=== PATIENT | female | born 2000 | race Caucasian/White ===

== ENCOUNTER → 2020-05-24 11:23 | Outpatient (CLI) | payer BC, SELFPAY ==
--- NOTE | ~2020-05-24 | US_ITS ---
EXAMINATION: US transvaginal DATE: 05/24/2020 11:50 INDICATION: Irregular menstruation Comparison:No prior studies for comparison. TECHNIQUE: Multiple endovaginal sonographic images of the pelvis performed. FINDINGS: The uterus measures 6.6 x 2.8 x 3.7 cm. The endometrial complex measures 9 mm. The right ovary measures 3.2 x 2.1 x 2.6 cm and the left ovary measures 2.4 x 1.8 x 2.5 cm. There ar e small follicles in each ovary. There is no free fluid in the pelvis. There are no abnormal masses seen on either side. IMPRESSION: 1. Unremarkable pelvic ultrasound. Reviewed, dictated and finalized at location A. NG COILER HAND
== END ==
PROVIDERS: Visit Provider Nurse Practitioner
DX: N92.6 Irregular menstruation, unspecified (principal)
CPT/HCPCS: 76830

== ENCOUNTER 2023-11-13 10:24 | Outpatient (CLI) | payer BC, SELFPAY ==
--- NOTE | ~2023-11-13 | US_ITS ---
EXAMINATION: US OB transvaginal DATE: 11/13/2023 11:00 INDICATION: Confirmation of viability. TECHNIQUE: Real-time transvaginal pelvic ultrasound was performed. COMPARISON: None. FINDINGS: The uterus measures 9.7 x 5.2 x 6.2 cm. There is an intrauterine gestational sac. A yolk sac is ident ified. The crown rump length measures 7 mm, which correlates with an estimated gestational age of 6 weeks and 4 day(s) (+/-) 4 day(s). heart motion is identified measuring 121 beats per min fred (bpm) by M-mode Doppler. The right ovary measures 5.5 x 4.2 x 5.7 cm. There is a 3.8 cm cyst in r ight ovary, likely a follicular cyst. The left ovary is not visualized. There is no free fluid in the pelvis. IMPRESSION: 1. Single living intrauterine gestation with estimated date of delivery of 07/04/2024. Reviewed, dictated and finalized at location E. IMPRESSION: 1. Single living intrauterine gestation with estimated date of delivery of 07/04.
== END 2023-11-13 10:25 ==
PROVIDERS: PCP Advanced Practice Midwife; Visit Provider Advanced Practice Midwife
DX: O36.80X0 Pregnancy with inconclusive fetal viability, not applicable or unspecified (principal); Z3A.00 Weeks of gestation of pregnancy not specified
CPT/HCPCS: 76817

== ENCOUNTER 2024-02-14 10:50 | Outpatient (CLI) | payer BC, SELFPAY ==
--- NOTE | ~2024-02-14 | US_ITS ---
EXAMINATION: US OB /maternal detail DATE: 02/14/2024 11:38 INDICATION: anatomy screen during second trimester TECHNIQUE: Multiple obstetric sonographic images performed. FINDINGS: There is a single living fetus in vertex presentation. The placenta is posterior with caudal margin 4.7 cm from the internal cervical os.. Normal amniotic fluid volume. heart rate of 152 beats p er minute. The following anatomy was identified as normal: Ventricles, choroid plexus, falx and cava septum pellucidum Cerebellum and cisterna magna Nuchal fold Spine The outflow tract views are suboptimal however the anatomy appears normal on the cine grayscale image s. Diaphragm Stomach Kidneys 3 vessel cord and cord insertion Bilateral upper and lower extremities including hands and feet The upper lip was unable be clearly visualized. A fluid-filled bladder was not visualized. The following biometric data were obtained: BPD: 4.6 cm -> 19 weeks 5 days Head circumference: 17.3 cm -> 19 weeks 6 days Abdominal circumference: 15.6 cm -> 20 weeks 5 days Femur length: 3.1 cm -> 19 weeks 5 days These measurements are concordant. Head circumference to abdominal circumference ratio: 1.11 (normal range 1.08-1.25). Estimated weight: 340 g (+/-) 51 g. or 12 oz. (+/-) 2 oz. IMPRESSION: 1. Single living fetus with vertex presentation with heart rate of 152 bpm. 2. Biometric data is concordant with previously estimated gestational age by ultrasound of 19 weeks 6 day(s) with ultrasound estimated date of delivery (SARBJIT) of 07/04/2024. Estimated weight is 67th percentile by Hadlock criteria when 07/04/2024 is used as the SARBJIT. Please correlate with clinical infor mation or earlier ultrasounds for most accurate SARBJIT. 3. Fluid-filled bladder is not visualized. The region of the upper lip was also obscured. The outflow tract views and portions of the brain are suboptimally visualized but appear normal. Otherwise kandace l anatomic survey. Reviewed, dictated and finalized at location A. IMPRESSION: 1. Single living fetus with vertex presentation with heart rate of 152 b pm. 2. Biometric data is concordant with previously estimated gestational age by jason nieves of 19 weeks 6 day(s) with ultrasound estimated date of delivery (SARBJIT) of 07/04/2024. Estimated weight is 67th percentile by Hadlock criteria when 07/04/2024 is used as the SARBJIT. Please correlate with clinical information or ear lier ultrasounds for most accurate SARBJIT. 3. Fluid-filled bladder is not visualized. The region of the upper lip was also obscured. The outflow tract views and portions of the brain are suboptimally v isualized but appear normal. Otherwise normal anatomic survey.
== END 2024-02-14 10:51 ==
LOC: MICIMG 10:51
PROVIDERS: PCP Obstetrics & Gynecology Gynecology; Visit Provider Obstetrics & Gynecology Gynecology
DX: Z36.9 Encounter for antenatal screening, unspecified (principal)
CPT/HCPCS: 76805

== ENCOUNTER 2024-03-11 10:55 | Outpatient (CLI) | payer BC, SELFPAY ==
--- NOTE | ~2024-03-11 | US_ITS ---
EXAMINATION: US OB follow up DATE: 03/11/2024 11:28 INDICATION: Anatomy scan follow-up TECHNIQUE: Real-time ultrasound of the pelvis was performed. The interpreting radiologist was not pre sent for the study. COMPARISON: None. FINDINGS: There is a single living fetus in breech presentation. The placenta is posterior. heart rate i s 153 beats per minute (bpm). The amniotic fluid volume is subjectively normal. The following anatomy was identified as normal: Ventricles, choroid plexus, falx and cava septum pellucidum Cerebellum and cisterna magna Nuchal fold Nose and upper lip Bladder IMPRESSION: 1. Single living fetus in breech presentation with heart rate of 153 bpm. 2. Repeat portions of prior incomplete anatomic survey including the bladder and imaging of the head are normal as detailed above. Reviewed, dictated and finalized at location B. IMPRESSION: 1. Single living fetus in breech presentation with heart rate of 153 bpm. 2. Repeat portions of prior incomplete anatomic survey including the blad lashay and imaging of the head are normal as detailed above.
== END 2024-03-11 10:56 | disposition home or self-care (01) ==
LOC: MICIMG 10:55
PROVIDERS: PCP Obstetrics & Gynecology Gynecology; Visit Provider Obstetrics & Gynecology Gynecology
DX: Z36.2 Encounter for other antenatal screening follow-up (principal); Z3A.00 Weeks of gestation of pregnancy not specified
CPT/HCPCS: 76816

== ENCOUNTER 2024-05-25 15:54 | Outpatient (CLI) | payer BC, SELFPAY ==
--- NOTE | ~2024-05-25 | US_ITS ---
EXAMINATION: US OB follow up DATE: 05/25/2024 16:25 INDICATION: Estimated size less than expected for gestational age during third trimester of pre gnancy. TECHNIQUE: Real-time ultrasound of the pelvis was performed. The interpreting radiologist was not pre sent for the study. COMPARISON: None. FINDINGS: There is a single living fetus in vertex presentation. The placenta is posterior and not low-lying. Cervical length measures approximately 3.7 cm which is normal. heart rate is 143 beats per vu te (bpm). The amniotic fluid index is 15.2 cm, which is normal (5th%-95%: 8.1-24.8 cm at 34 weeks es timated gestational age). The following biometric data were obtained: BPD: 8.5 cm -> 34 weeks 0 days Head circumference: 31.1 cm -> 34 weeks 5 days Abdominal circumference: 30.6 cm -> 34 weeks 4 days Femur length: 6.9 cm -> 35 weeks 2 days These measurements are concordant. Head circumference to abdominal circumference ratio: 1.02 (normal range 0.93-1.11). Estimated weight: 2497 g (+/-) 375 g or 5 lbs. 8 oz. (+/-) 13 oz. IMPRESSION: 1. Single living fetus in vertex presentation with heart rate of 143 bpm. 2. Normal amniotic fluid index of 15.2 cm. 3. Estimated weight is 57th percentile by Hadlock criteria when 07/01/2024 is used as the estimat ed date of delivery (SARBJIT). Please correlate with clinical information or earlier ultrasounds for most accurate SARBJIT. Reviewed, dictated and finalized at location A. ING AND COMPOSITE FABRICATOR IMPRESSION: 1. Single living fetus in vertex presentation with heart rate of 143 bpm. 2. Normal amniotic fluid index of 15.2 cm. 3. Estimated weight is 57th percentile by Hadlock criteria when 07/01/2024 is used as the estimated date of delivery (SARBJIT). Please correlate with clinical information or earlier ultrasounds for most accurate SARBJIT.
== END 2024-05-25 15:55 | disposition home or self-care (01) ==
PROVIDERS: PCP Obstetrics & Gynecology Gynecology; Visit Provider Advanced Practice Midwife
DX: O36.5930 Maternal care for other known or suspected poor fetal growth, third trimester, not applicable or unspecified (principal); Z3A.00 Weeks of gestation of pregnancy not specified
CPT/HCPCS: 76816

== ENCOUNTER 2024-06-04 10:55 | Outpatient (CLI) | payer BC, SELFPAY ==
[2024-06-04] VITALS (7 sets, daily range): BP systolic 115–127; BP diastolic 71–78; PULSE 89–94; BMI 29.7
[2024-06-04 11:55] LABS: Basophils Percent Auto 0.1 % (0.2-1.2); Eosinophils Absolute Auto 0.2 K/mm3 (0-0.3); Eosinophils Percent Auto 2.5 % (0-4.4); Hematocrit 32.4 % (37.0-47.0); Hemoglobin 10.5 g/dL (12.0-15.0); Immature Granulocyte Absolute 0.04 K/mm3 (0.00-0.031); Immature Granulocyte Percent A 0.5 % (0-0.5); Lymphocytes Absolute Auto 1.12 K/mm3 (0.9-3.2); Lymphocytes Percent Auto 14.9 % (18.3-44.2); Mean Corpuscular HGB Conc 32.4 g/dl (32-36); Mean Corpuscular Hemoglobin 27.3 pg (26-34); Mean Corpuscular Volume 84.2 fl (80-100); Mean Platelet Volume 10.1 fl (7.4-10.4); Monocytes Absolute Auto 0.5 K/mm3 (0.1-0.6); Monocytes Percent Auto 6.4 % (2.6-8.5); Neutrophils Absolute Auto 5.7 K/mm3 (1.3-6.7); Neutrophils Percent Auto 75.6 % (45.5-73.1); Platelet Count Result 201 k/mm3 (150-375); Red Blood Count 3.85 M/mm3 (4.2-5.4); Red Cell Distribution Width 14.3 % (11.5-14.5); White Blood Count 7.5 K/mm3 (4.5-10.0)
[2024-06-04 12:01] LABS: Add Urine Microscopic? YES; Appearance Urine Clear (Clear); Bacteria Urine None Seen /hpf; Bilirubin Urine Negative (Negative); Blood Urine Negative (Negative); Color Urine Yellow (Yellow); Glucose Urine UA Negative (Negative); Ketones Urine Trace mg/dL (Negative); Leukocyte Esterase Ur Negative LEU/UL (Negative); Nitrate Urine Negative (Negative); Non Pathogenic Casts 0-2; Protein Urine Trace mg/dL (Negative); RBC Urine 0-2 /hpf (0-2); Specific Grav Ur 1.024 (1.001-1.035); Squamous Epithelial Cell Urine Occasional /hpf (Few); WBC Urine 0-5 /hpf (0-3); pH Urine 6.5 (5.0-9.0)
[2024-06-04 12:09] LABS: Alanine Aminotransferase 10 U/L (6-35); Albumin Level 3.5 g/dL (3.5-5.1); Alkaline Phosphatase 125 U/L (38-126); Anion Gap 5 mmol/L (4-12); Aspartate Amino Transferase 18 U/L (14-36); Bilirubin,Total 0.3 mg/dL (0.2-1.3); Blood Urea Nitrogen 8 mg/dL (7-17); Calcium 8.6 mg/dL (8.4-10.2); Carbon Dioxide 22 mmol/L (22-30); Chloride 109 mmol/L (98-107); Estimated Glomerular Filt Rate > 60; Glucose 122 mg/dL (65-110); Potassium 3.8 mmol/L (3.4-5.0); Sodium 136 mmol/L (137-145); Uric Acid 5.9 mg/dL (2.5-7.5)
[2024-06-04 12:35] LABS: Total Protein Urine Random 14 mg/dL; Ur Ttl Prot Creatinine Ratio 0.06 mg/mg (0-0.20)
--- NOTE | 2024-06-04 12:37 | PC.NURSE ---
Dr. Broussard informed of BP's, lab results, and reactive NST.
== END 2024-06-04 13:03 | disposition home or self-care (01) ==
LOC: ANHOBOP 11:09 → ANHOBPP 11:11
PROVIDERS: Visit Provider Obstetrics & Gynecology Gynecology
DX: O13.9 Gestational [pregnancy-induced] hypertension without significant proteinuria, unspecified trimester (principal); Z3A.00 Weeks of gestation of pregnancy not specified
CPT/HCPCS: 36415; 59025; 80053; 81001; 82570; 84156; 84550; 85025; 99199

== ENCOUNTER 2024-06-08 14:10 | Outpatient (NON) | payer BC, SELFPAY ==
[2024-06-08 15:08] VITALS: BMI 29.7
[2024-06-08 16:45] LABS: Collection Time Urine 24 HOURS
[2024-06-08 16:51] LABS: Total Volume 24 Hour Urine 500 ml
[2024-06-08 16:53] LABS: Patient Weight 212 Lbs; Total Volume 24 Hour Urine 500 ml
[2024-06-08 17:28] LABS: Total Protein Urine 24 Hr 85 mg/24hr (28-141); Total Protein Urine Random 17 mg/dL
[2024-06-08 17:28] LABS: Creatinine Clearance Urine 143.4 ml/min (75-125); Creatinine Urine 308.5 mg/dL
== END 2024-06-08 14:11 | disposition home or self-care (01) ==
LOC: ANHOBOP 14:48
PROVIDERS: Visit Provider Obstetrics & Gynecology Gynecology
DX: Z34.93 Encounter for supervision of normal pregnancy, unspecified, third trimester (principal); Z3A.00 Weeks of gestation of pregnancy not specified
CPT/HCPCS: 81050; 82575; 84156

== ENCOUNTER 2024-06-30 05:01 | Inpatient (IN) | payer BC, SELFPAY ==
[2024-06-30] VITALS (145 sets, daily range): BP systolic 102–150; BP diastolic 51–100; PULSE 75–170; RESP 16; TEMP 36.6–37.2; O2SAT 93–100; BMI 30.4
[2024-06-30 05:58] LABS: Basophils Percent Auto 0.3 % (0.2-1.2); Eosinophils Absolute Auto 0.6 K/mm3 (0-0.3); Eosinophils Percent Auto 5.6 % (0-4.4); Hematocrit 32.5 % (37.0-47.0); Hemoglobin 10.8 g/dL (12.0-15.0); Immature Granulocyte Absolute 0.06 K/mm3 (0.00-0.031); Immature Granulocyte Percent A 0.6 % (0-0.5); Lymphocytes Absolute Auto 1.97 K/mm3 (0.9-3.2); Lymphocytes Percent Auto 18.9 % (18.3-44.2); Mean Corpuscular HGB Conc 33.2 g/dl (32-36); Mean Corpuscular Hemoglobin 27.6 pg (26-34); Mean Corpuscular Volume 82.9 fl (80-100); Monocytes Absolute Auto 0.9 K/mm3 (0.1-0.6); Monocytes Percent Auto 8.3 % (2.6-8.5); Neutrophils Absolute Auto 6.9 K/mm3 (1.3-6.7); Neutrophils Percent Auto 66.3 % (45.5-73.1); Platelet Count Result 183 k/mm3 (150-375); Red Blood Count 3.92 M/mm3 (4.2-5.4); Red Cell Distribution Width 15.2 % (11.5-14.5); White Blood Count 10.5 K/mm3 (4.5-10.0)
--- NOTE | 2024-06-30 06:19 | LDADM ---
This patient, Calvin Ozuna, was admitted to Labor/Delivery/Recovery 105 on 06/30/24 at 05:01. Plans for labor, pain management and were discussed with patient. Patient/family oriented to hospital policies and general routines including ID bracelet, bed and alarms, visiting hours, pain management, procedures, bathroom and other care routines, personal items, smoking policy, room service/diet and guest tray routines, security routines, and visiting hours. Patient/Family are encouraged to report perceived risks to care and to ask questions if they do not understand what they are told or what they should do. See OBIX for further documentation.
[2024-06-30] MEDS: OXYTOCIN 30 UNITS/NS 500 ML 30 UNITS/500 ML BAG 6 UNITS IV CONT (06:33)
[2024-06-30] MEDS: LACTATED RINGERS 1,000 ML 125 ML IV CONT (06:33)
[2024-06-30 06:45] LABS: HIV 1/2 Ab P24 Ag Result Negative (Negative)
[2024-06-30 07:34] LABS: Rapid Plasma Reagin Non-Reactive (NonReactive)
--- NOTE | 2024-06-30 07:47 | WPDOBADMIT ---
Obstetrics - Admit Note Admission Note: record reviewed. No pertinent additions to the history and/or any subsequent changes in the physical findings that are not consistent with the expected course of the were found. Additions to the history and/or subsequent changes in the physical findings follow. None.Here at 39 4/7 for MIL. Cervix /-2 anterior soft. AROM with clear fluid. FHTs Cat. I.
[2024-06-30] MEDS: fentaNYL CITRATE INJ (*CRX) 100 MCG/2 ML VIAL 50 MCG IV PUSH (09:08)
--- NOTE | 2024-06-30 10:12 | WPDANESEPP ---
Anes - Eval Pre Procedure Procedure: Labor epidural Date/Time: 06/30/24 10:12 Surgeon: Bobo Preop Diagnosis: Pain during labor Pre Op Diagnosis: Induction of Labor Patient Data Age: 23 Gender: F Height: 1.8 m Weight: 99.1 kg Last Vital Signs Temp 37.2 C 06/30/24 08:30 Pulse 92 06/30/24 08:30 BP 136/94 H 06/30/24 08:30 Pulse Ox 99 06/30/24 10:12 O2 Del Method Room Air 06/30/24 06:17 Allergies Allergy/AdvReac Type Severity Reaction Status Date / Time No Known Drug Allergies Allergy none Verified 06/30/24 06:23 Home Medications ?Medication ?Instructions ?Recorded ?Confirmed ?Type aspirin 81 mg chewable tablet 81 mg PO DAILY 06/17/24 06/30/24 History (Buster Chewable Low Dose Aspirin) cetirizine 10 mg tablet (24Hour 5 mg PO DAILY PRN allergy symptoms 06/17/24 06/17/24 History Allergy) cholecalciferol (vitamin D3) 125 mcg PO WEEKLY 06/17/24 History mcg (5,000 unit) disintegrating tablet ferrous sulfate 137 mg (45 mg 137 mg PO DAILY 06/17/24 06/30/24 History iron) tablet,extended release (Slow Fe) vit no.95-ferrous 1 tablet PO DAILY 06/17/24 06/30/24 History fumarate 28 mg-folic acid 800 mcg tablet () Laboratory Tests 06/30/24 05:19 WBC 10.5 H K/mm3 (4.5-10.0) RBC 3.92 L M/mm3 (4.2-5.4) Hgb 10.8 L g/dL (12.0-15.0) Hct 32.5 L % (37.0-47.0) MCV 82.9 fl (80-100) MCH 27.6 pg (26-34) MCHC 33.2 g/dl (32-36) RDW 15.2 H % (11.5-14.5) Plt Count 183 k/mm3 (150-375) MPV 10.0 fl (7.4-10.4) Immature Gran % (Auto) 0.6 H % (0-0.5) Neut % (Auto) 66.3 % (45.5-73.1) Lymph % (Auto) 18.9 % (18.3-44.2) Yell % (Auto) 8.3 % (2.6-8.5) Eos % (Auto) 5.6 H % (0-4.4) Baso % (Auto) 0.3 % (0.2-1.2) Lymph # (Auto) 1.97 K/mm3 (0.9-3.2) Yell # (Auto) 0.9 H K/mm3 (0.1-0.6) Eos # (Auto) 0.6 H K/mm3 (0-0.3) Baso # (Auto) 0.0 K/mm3 (0.0-0.1) Abs Immat Gran (auto) 0.06 H K/mm3 (0.00-0.031) Absolute Neuts (auto) 6.9 H K/mm3 (1.3-6.7) Absolute Nucleated RBC 0.000 K/mm3 (0.0-0.012) Nucleated RBC % 0.0 % (0.0-0.2) RPR Non-reactive (NonReactive) HIV 1&2 Ab/P24 Ag 4thGn Negative (Negative) Blood Type AB Positive Antibody Screen Negative Patient hx anesthesia problems: none Family hx anesthesia problems: none Results Review: All pre-operative results and documents have been reviewed as part of the pre-operative evaluation. [facility] Family History Family History Father Diabetes mellitus Hypertension Grandparent Acute myocardial infarction Social History Social History Smoking status: Never smoker Substance use: never Do You Feel Safe in your Home?: Yes Lack of Transportation: No Lack of Food: Never True Current Housing: I Have Housing Concerned About Future Housing: No Difficulty Paying Gas/Electric Bills: No Difficulty Paying for Meds: No Currently Unemployed: No Education: Bachelor's Degree Difficulty w/ Childcare or Family Care: No Exam Day of Procedure 06/30/24 10:12 Patient weight: overweight Heart: regular rate and rhythm Lungs: clear to auscultation and normal air movement Airway: Mallampati scale class II Neurological: alert and oriented
--- NOTE | 2024-06-30 14:20 | P.PCNOB_ITS ---
OB - Vaginal Delivery Note Procedure Delivery date: 06/30/24 Induction method: AROM and Per Pitocin Protocol Delivery monitor: External FHT and External Uterine Route of delivery: Episiotomy description: None Laceration Description: Perineal - 2nd Degree Delivery repair: vicryl (3-0) Specimen: No Quantitative Blood Loss (ml): 100 Anesthesia type: Epidural Disposition: Floor Complications: No immediate complications [place] Baby Date of : 06/30/24 Gestational Age by Date: 39 gender: Female presentation: vertex position: Right Occiput Anterior Placenta delivery description: Spontaneous Cord Vessel Description: 3 Vessels and Nuchal Cord score one minute: 8 score five minutes: 9
[2024-06-30] MEDS: OXYTOCIN 30 UNITS/NS 500 ML 30 UNITS/500 ML BAG 125 UNITS IV CONT (14:38)
--- NOTE | 2024-06-30 17:00 | OBPPTRN ---
Patient transferred to post room #285 via wheelchair. Support person present. Oriented to unit, room, information board, rooming in, admission packet and security measures. Patient verbalizes understanding.
[2024-06-30] MEDS: IBUPROFEN 600 MG TABLET PO (18:59)
[2024-06-30] MEDS: ACETAMINOPHEN 325 MG TABLET 650 MG PO (19:03)
[2024-07-01] MEDS: ACETAMINOPHEN 325 MG TABLET 650 MG PO ×3 (01:59→21:50)
[2024-07-01] MEDS: IBUPROFEN 600 MG TABLET PO ×3 (01:59→19:19)
[2024-07-01 03:55] VITALS: BP 126/82; PULSE 92; RESP 16; TEMP 36.4; O2SAT 98
[2024-07-01 05:20] LABS: Hematocrit 28.5 % (37.0-47.0); Hemoglobin 9.4 g/dL (12.0-15.0)
[2024-07-01 07:45] VITALS: BP 128/76; PULSE 94; RESP 16; TEMP 36.8; O2SAT 100
[2024-07-01] MEDS: POLYSACCHARIDE IRON COMPLEX 150 MG CAPSULE PO ×2 (08:06→17:31)
[2024-07-01] MEDS: MULTIVIT/MIN/PREN/FOL AC/IRON TABLET 1 TAB PO (08:06)
[2024-07-01] MEDS: DOCUSATE SODIUM 100 MG CAPSULE PO ×2 (08:06→17:31)
--- NOTE | 2024-07-01 09:30 | PC.NURSE ---
Introductions were made, then consulted with patient to assess needs related to . Discussed with mother her?plans to feed?her and the?experience so far. She is having pain with latch on and throughout some feedings. She says she can tell if it isn't a deep latch. Encouraged her to call at the next feeding so the latch can be assessed. Baby cluster fed several hours early this morning and is sleepy now. Assured mom that is typical behavior. Resources provided for inpatient and outpatient services with the feeding sheet, mom/baby guide, admission packet and name/number written on the communication board. Mother voiced understanding of information and will call for assistance with the next feeding. Reported to the Primary RN.
--- NOTE | 2024-07-01 10:58 | P.PNOB_ITS ---
OB - PN: Subj Subjective Date/time seen: 07/01/24 10:58 Patient comments: no complaints and pain well controlled baby status: doing well OB - PN: Obj Data Labs 07/01/24 03:52 Labs: Laboratory Results - last 24 hr 07/01/24 03:52 Hgb 9.4 L Hct 28.5 L OB - PN A/P Plan day: 1 Plan: routine care, discharge home (if ok with peds), follow up 6 weeks and other (uncertain BC plans) Time Spent With Patient Time: Total time spent is greater than 50% in coordination of care (as documented) at patient's floor/unit and/or counseling patient: Exam 2 : Bimanual exam- vagina & uterus: other (Uterus firm, nt @U)
--- NOTE | 2024-07-01 10:59 | PM.OBDSVD ---
DS: Admitting Diagnosis Discharge Date 07/01/24 Admitting Diagnosis [address] [facility] DS: Discharge Diagnosis Discharge Diagnosis (1) (normal spontaneous vaginal delivery): Code(s): O80 - Encounter for full-term uncomplicated delivery Status: Acute OB - DS: Summary OB Procedures : Ultrasound OB Procedures Intrapartum: Spontaneous Vag Delivery OB Procedures: : None Peripartum Data Infant Delivery Method: Natural Vaginal Laceration Description: Perineal - 2nd Degree Episiotomy description: None complications: none Status at Discharge Functional status at discharge: independent ambulation Overall status at discharge: patient is progressing back to baseline Time Spent with Patient Time attestation: Total time spent providing and/or coordinating discharge services: DS: Data Data Completed and Pending Labs on day of discharge: Labs from last 24 hours 07/01/24 03:52 Hgb 9.4 L Hct 28.5 L Discharge Plan Discharge Attending physician on discharge: Nicky Broussard Discharging Clinician: Nicky Broussard Anticipated Discharge Date/Time: 07/01/24 16:00 Patient Disposition: Home, Self-Care Activity: may shower and pelvic rest Diet: regular Patient Instructions: Antibiotic Form Patient Language: Mohawk Stand Alone Forms: General Discharge Information Follow-up/Referrals: Nicky Broussard MD [Physician] - 6 Weeks Discharge Medications: Continued cetirizine [24Hour Allergy] 10 mg tablet 5 mg PO DAILY PRN (Reason: allergy symptoms) Slow Fe 137 mg (45 mg iron) tablet extended release 137 mg PO DAILY cholecalciferol (vitamin D3) 125 mcg (5,000 unit) tablet,disintegrating PO WEEKLY Discontinued aspirin [Buster Chewable Aspirin] 81 mg tablet,chewable 81 mg PO DAILY No Action PNV cmb#95-ferrous fumarate-FA [] 28 mg iron- 800 mcg tablet 1 tablet PO DAILY Date of admission: 06/30/24 05:01 Primary Care Provider: UNKNOWN,DOCTOR Admitting Provider: Nicky Broussard Attending physician on admission: Nicky Broussard Condition: Stable
--- NOTE | 2024-07-01 11:05 | PC.NURSE ---
Mom called out for a latch check. Observed mother latching infant to the [right] breast in [cradle] position. It took several attempts because baby is sleepy. [was] able to maintain an appropriate latch. Mother [complains of] nipple soreness. but declines pain. She will call out if she has pinching or pain with latch. Baby has an optimal latch with a wide mouth, bottom lip flanged out, and chin engaged with the breast. Encouraged mother to keep awake and nursing. Mother taught to listen for swallowing during feedings, swallows were heard. Reviewed using the blue feeding sheet to record time and duration of feeding. Mother voiced understanding of the education shared, to call for assistance if the does not latch or if there is discomfort with . name/number on communication board. Reported to the Primary RN.
[2024-07-01 12:10] VITALS: BP 131/77; PULSE 84; RESP 16; TEMP 36.4; O2SAT 99
--- NOTE | 2024-07-01 14:39 | WPDANLDPN2 ---
Anes-Prog Note L&D Date/Time: 07/01/24 14:39 Comfortable throughout: labor Neuraxial method: epidural Epidural/Spinal procedure site: clean & non-tender Neuro status: Neuro function grossly intact. Cardiovascular status: normal Respiratory status: normal Airway patency: baseline Mental status: baseline Post-Op hydration status: normal Vital Signs: Last Vital Signs Temp 97.5 F L 07/01/24 12:10 Pulse 84 07/01/24 12:10 Resp 16 07/01/24 12:10 BP 131/77 07/01/24 12:10 Pulse Ox 99 07/01/24 12:10 O2 Del Method Room Air 06/30/24 06:17 Pain score (VAS): 0 Post-procedural complaints: none Patient feedback: Patient satisfied with anesthetic care.
--- NOTE | 2024-07-01 19:58 | PC.NURSE ---
Discussed feeding with Pt and concern that infant only had 1 wet diaper in 12 hours. Pt stated she worked with today and has some soreness at the breast but that infant has adequate latch. Pt stated had sleepy period in the am but fed frequently afterwards. Encouraged pt to continue feeding every 2-3 hours/ on demand and to call prior to next feeding so this RN can observe latch and/or if she has any questions or concerns.
[2024-07-02 00:30] VITALS: BP 128/82; PULSE 86; RESP 18; TEMP 36.7; O2SAT 99
[2024-07-02] MEDS: IBUPROFEN 600 MG TABLET PO (03:38)
--- NOTE | 2024-07-02 07:37 | P.PNOB_ITS ---
OB - PN: Subj Subjective Date/time seen: 07/02/24 07:37 Interval history: peds wanted to stay so dc cancelled yesterday Patient comments: no complaints and pain well controlled baby status: doing well OB - PN: Obj Data Labs 07/01/24 03:52 OB - PN A/P Plan day: 2 Plan: routine care and discharge home Time Spent With Patient Time: Total time spent is greater than 50% in coordination of care (as documented) at patient's floor/unit and/or counseling patient: Exam 2 : Bimanual exam- vagina & uterus: other (Uterus firm, nt @U)
[2024-07-02 07:45] VITALS: BP 121/64; PULSE 72; RESP 16; TEMP 36.6; O2SAT 100
[2024-07-02 08:00] VITALS: PULSE 72; RESP 16; O2SAT 100
--- NOTE | 2024-07-02 09:18 | PC.NURSE ---
Introductions were made, then consulted with patient to assess needs related to . Mother led the conversation with her?plans to feed?her and the?experience so far. Mother plans on exclusively and baby had cluster fed through the night, mother is able to hand express many large drops of colostrum before latching baby. Mother reports that baby has been very gassy and baby's last stool was yesterday @ 0720, but has had 4-5 stools since and urine output is adequate. Mother is feeding appropriately for growth of and understands stimulating infant to eat if needed. Infant has had appropriate feedings in the last 24 hours meets the outcomes for weight, blood sugar and jaundice at this time. Reinforced understanding of milk production, transition of milk, signs of adequate intake, transition of stool, prevention/relief of engorgement, plugged ducts, mastitis, responsive watching for feeding cues, the different methods of stimulating infant to breastfeed 1-3 hours after the start of the last feeding, community resources, and when to call a provider using the resource of the feeding sheet along with the mom and baby guide. Encouraged understanding of the benefits of skin to skin (demonstrating unwrapping and placing upright on her chest), stimulating with massage touch, changing positions to encourage wakefulness, how to watch for early feeding cues, responsive feeding, feeding on demand (aiming for 8-12 times in 24 hours, about every 2-3 hours), milk production, building/maintaining a milk supply, duration of feeding, signs of adequate intake/output and how to record on the feeding sheet. Mother works very well with her and is able to position baby well and get an optimal latch. latched optimally to the [left] breast in [cradle] position. Education given to the mother of how to visualize the suckling (with good rocking jaw motion), swallows (dropping of the lower jaw) and how to listen for drinking at the breast (the ka sound), swallows heard by RN. Infant was [able] to maintain latch without pain to mother protecting the nipple with optimal positioning and latching. Reviewed comfort measures of healing with a warm, wet washcloth to rinse breast, then leave open to air-dry, good handwashing when or touching the breast/nipples to prevent infection. Mother voiced understanding of skin to skin, stimulating with massage touch, responsive feedings, hand expressed colostrum, talking to to encourage if it has been 2 -2.5 hours since the start of the last , to call if does not latch, or if there is discomfort with . Resources used for education were facilitated with the [visual educational handouts/ tool/mom and baby guide], Inpatient/outpatient resources provided with business card, feeding sheet, name written on the communication board, and the mom/baby guide. Parents voiced understanding of information, demonstrated learning and will call if there is a request for assistance. Reported to the Primary RN.
[2024-07-02] MEDS: POLYSACCHARIDE IRON COMPLEX 150 MG CAPSULE PO (09:48)
[2024-07-02] MEDS: ACETAMINOPHEN 325 MG TABLET 650 MG PO (09:48)
[2024-07-02] MEDS: DOCUSATE SODIUM 100 MG CAPSULE PO (09:48)
[2024-07-02] MEDS: MULTIVIT/MIN/PREN/FOL AC/IRON TABLET 1 TAB PO (09:48)
--- NOTE | 2024-07-02 15:15 | PC.NURSE ---
Patient viewed the discharge video Mother & Baby Care, The First Two Weeks . Patient was given the opportunity and encouraged to ask questions. Patient verbalized understanding of information shared and has been given the mother/baby guide for home reference.
[2024-07-03 08:39] VITALS: BP 134/81; PULSE 82; RESP 18; TEMP 36.6; O2SAT 100
--- OUTSIDE RECORDS SUMMARY | 2024-07-07 03:32 | XMS_ITS | Encounter Summary ---
Author Organization [facility] Address [address] [place] [address] Phone Care Team Providers Care Unarmed Security Officer Name Role Phone Vivien Cross APRN, CNP Primary Care P rovider Encounter Details Date Type Department Care Team (Late st Contact Info) Description 06/12/2024 Telephone [facility] - Primary Care - [place] [address] [place] [address] Vivien Cross APRN BARGE MASTER [address] [place] [address] Social History Tobacco Use Types Packs/Day Years Used Date Smoking Tobacco: Never Smokeless Tobacco: Never Alcohol Use Standard Drinks/Week Comments Never 0 (1 standard drink = 0.6 oz pur e alcohol) AUDIT-C Answer Date Recorded Frequency of Alcohol Consumption Never 04/24/2019 Average Number of Drinks Not on file 019 Frequency of Binge Drinking Not on file 04/01 PHQ-2 Answer Date Recorded Total Score - Questions 1-9 0 06/01 Education Answer Date Recorded What is the highest level of school you have completed or the highest degree you have received? Associate degree: occupational, technical, or vocational program 06/20/2021 Sexually Active Control Partners Comments Never Comments No Sex and Gender Information Value Date Recorded Sex Assigned at Not on file Legal Sex Female 9:24 PM CDT Gender Identity Not on file Sexual Orientation Not on file documented as of this encounter Miscellaneous Notes * Telephone Encounter - Vivien Cross APRN, CNP - 06/12/2024 4:19 PM CST Clobetasol to pharm ATRICS PHYSICIAN documented in this encounter Plan of Treatment Not on file documented as of this encounter Visit Diagnoses Diagnosis Dyshidrotic eczema- Primary Dyshidrosis documented in this encounter Care Teams Unarmed Security Officer Relationship Specialty Start Date End Date Vivien Cross APRN, CNP [address] [place] [address] PCP - General Advanced Practice Nurse 06/21/21 documented as of this encounter
--- OUTSIDE RECORDS SUMMARY | 2024-07-07 03:32 | XMS_ITS | Encounter Summary ---
Author Organization [facility] Address [address] [place] [address] Phone Care Team Providers Care Senior Project Manager Engineering Name Role Phone Vivien Cross APRN, MECHELLE Primary Care P roanselmoder Encounter Details Date Type Department Care Team (Late st Contact Info) Description 05/27/2023 [facility] [address] [place] [address] Lexie Pearl APRN, WAIVER ANALYST [address] [place] [address] Encounter for pre-employment examination Social History Tobacco Use Types Packs/Day Years [...] on file documented as of this encounter Plan of Treatment Not on file documented as of this encounter Procedures Procedure Name Priority Date/Time Associated Diagnosis Comments QUANTIFERON-TB GOLD PLUS Routine 05/27/2023 2:00 PM HEALTH INFORMATION MANAGER Encounter for pre-employment examination MMRV PANEL Routine 05/27/2023 2:00 PM HEALTH INFORMATION MANAGER Encounter for pre-employment examination MUMPS IGG Routine 05/27/2023 2:00 PM HEALTH INFORMATION MANAGER Encounter for pre-employment examination HERPES ZOSTER (VARICELLA) IGG Routine 05/27/2023 2:00 PM HEALTH INFORMATION MANAGER Encounter for pre-employment examination RUBEOLA (MEASLES) IGG Routine 05/27/2023 2:00 PM HEALTH INFORMATION MANAGER Encounter for pre-employment examination RUBELLA IMMUNITY IGG Routine 05/27/2023 2:00 PM HEALTH INFORMATION MANAGER Encounter for pre-employment examination HEPATITIS B SURFACE ANTIBODY (HBSAB) Routine 05/27/2023 2:00 PM HEALTH INFORMATION MANAGER Encounter for pre-employment examination documented in this encounter Results * HERPES ZOSTER (VARICELLA) IGG (05/27/2023 2:00 PM HEALTH INFORMATION MANAGER) VARICELLA ZOSTER IGG 2.3 >=1.1 AI 05/27/2023 10:59 PM HEALTH INFORMATION MANAGER [facility] Blood Venipuncture / Unknown 05/27/2023 2:00 PM HEALTH INFORMATION MANAGER 05/27/2023 3:29 PM HEALTH INFORMATION MANAGER Narrative [facility] - 05/27/2023 10:59 PM HEALTH INFORMATION MANAGER <= 0.8 Negative. ??No detectable VZV IgG antibody. 0.9 - 1.0 Equivocal >=1.1 Positive Antibody testing was performed by multiplex flow immunoassay on the [employer] platform. us Lexie L Behrends BULB SORTER, WAIVER ANALYST IMMUNOLOGY ORDERABL ES Final Result [facility] [address] [place] [address], [place] * RUBEOLA (MEASLES) IGG (05/27/2023 2:00 PM HEALTH INFORMATION MANAGER) MEASLES AB IGG 3.5 >=1.1 AI 05/27/2023 10:59 PM HEALTH INFORMATION MANAGER [facility] Blood Venipuncture / Unknown 05/27/2023 2:00 PM HEALTH INFORMATION MANAGER 05/27/2023 3:29 PM HEALTH INFORMATION MANAGER Narrative [facility] - 05/27/2023 10:59 PM HEALTH INFORMATION MANAGER <= 0.8 Negative. ??No detectable Measles IgG antibody. 0.9 - 1.0 Equivocal >=1.1 Positive Antibody testing was performed by multiplex flow immunoassay on the [employer] platform. Lexie L Behrends BULB SORTER, WAIVER ANALYST IMMUNOLOGY ORDERABL ES Final Result [facility] [address] [place] [address], [place] * RUBELLA IMMUNITY IGG (05/27/2023 2:00 PM HEALTH INFORMATION MANAGER) RUBELLA IMMUNITY Immune Immune, Invalid 05/27/2023 10:59 PM HEALTH INFORMATION MANAGER [facility] Blood Venipuncture / Unknown 05/27/2023 2:00 PM HEALTH INFORMATION MANAGER 05/27/2023 3:29 PM HEALTH INFORMATION MANAGER Narrative [facility] - 05/27/2023 10:59 PM HEALTH INFORMATION MANAGER Antibody testing was performed by multiplex flow immunoassay on the [employer] platform. Lexie L Behrends BULB SORTER, WAIVER ANALYST CHEMISTRY ORDERABLE S Final Result [facility] [address] [place] [address], [place] * MUMPS IGG (05/27/2023 2:00 PM HEALTH INFORMATION MANAGER) Mumps Ab IgG 2.9 >=1.1 AI 05/27/2023 10:59 PM HEALTH INFORMATION MANAGER [facility] Blood Venipuncture / Unknown 05/27/2023 2:00 PM HEALTH INFORMATION MANAGER 05/27/2023 3:29 PM HEALTH INFORMATION MANAGER Narrative [facility] - 05/27/2023 10:59 PM HEALTH INFORMATION MANAGER <= 0.8 Negative. ??No detectable Mumps IgG antibody. 0.9 - 1.0 Equivocal >=1.1 Positive Antibody testing was performed by multiplex flow immunoassay on the [employer] platform. us Lexie Pearl BULB SORTER, WAIVER ANALYST IMMUNOLOGY ORDERABL ES Final Result [facility] [address] [facility] [place] [address], [place] * QUANTIFERON-TB GOLD PLUS (05/27/2023 2:00 PM HEALTH INFORMATION MANAGER) NIL CONTROL 0.06 <8.01 IU/mL 05/29/2023 11:00 AM HEALTH INFORMATION MANAGER [facility] TB ANTIGEN 1 0.00 <0.35 IU/mL 05/29/2023 11:00 AM HEALTH INFORMATION MANAGER [facility] TB ANTIGEN 2 0.01 <0.35 IU/mL 05/29/2023 11:00 AM HEALTH INFORMATION MANAGER [facility] MITOGEN CONTROL 9.94 >0.49 IU/mL 05/29/20 11:00 AM HEALTH INFORMATION MANAGER [facility] INTEPRETATION TB NEGATIVE NEGATIVE, NEGATIVE (TB antigen response less than 25% of internal negative control value) 05/29/2023 11:00 AM [facility] Comment:No immune response t o Mycobacterium tuberculosis antigens was noted. M. tuberculosis infection unlikely. Blood Venipuncture / Unknown 05/27/2023 2:00 PM HEALTH INFORMATION MANAGER 05/27/2023 3:29 PM HEALTH INFORMATION MANAGER Narrative [facility] - 05/29/2023 11:00 AM HEALTH INFORMATION MANAGER A POSITIVE QUANTIFERON-TB GOLD PLUS RESULT SHOULD NOT BE THE SOLE OR DEFINITIVE BASIS FOR DETERMINING INFECTION WITH M.TUBERCULOSIS. Diagnosing or excluding tuberculosis disease, and assessing the probability of LTBI, requires a combination of epidemiological, historical, medical and diagnostic findings (e.g., acid fast bacilli (AFB) smear and culture, chest xray) that should be taken into account when interpreting QFT-Plus results. Furthermore, the magnitude of the measured gamma interferon level cannot be correlated to stage or degree of infection, level of immune responsiveness, or likelihood for progression to active disease. The Nil control adjusts for background (e.g., elevated levels of circulating gamma interferon or presence of heterophile antibodies). The Mitogen control serves as an internal positive control and verifies each specimen tested can produce a gamma interferon response. Low mitogen may occur with insufficient lymphocytes, reduced lymphocyte activity due to improper specimen handling, filling/mixing of the mitogen tube, or inability of the patient's lymphocytes to generate gamma interferon. Infection with other Mycobacteria, including M. kansasii, M. szulgai, and M. marinum, may cause false positive results. A negative QuantiFERON-TB Gold Plus result does not preclude the possibility of M. tuberculosis infection or tuberculosis disease: false negative results can be due to incorrect blood sample collection/ improper handling of the specimen, stage of infection (e.g., specimen obtained prior to the development of cellular immune response), co-morbid conditions which affect immune function, or other individual immunological factors. The minimum number of lymphocytes required for a reliable test has not been established and may also be variable. Diagnostic testing for Mycobacterium tuberculosis using Interferon Gamma Release Assays should follow applicable published guidelines, including when testing in populations such as children, women, and HIV-infected or otherwise immunocompromised individuals. https://www.cdc.gov/tb/publications/guidelines/testing.htm us Lexie Pearl BULB SORTER, WAIVER ANALYST IMMUNOLOGY ORDERABL ES Final Result [facility] [address] [place] [address], * HEPATITIS B SURFACE ANTIBODY (HBSAB) (05/27/2023 2:00 PM HEALTH INFORMATION MANAGER) HEPATITIS B SURFACE ANTIBODY <8.00 mIU/mL [facility] ARCH [id number] 05/27/2023 10:15 PM HEALTH INFORMATION MANAGER [facility] Comment:Individual is consid ered not immune to HBV infection. Blood Venipuncture / Unknown 05/27/2023 2:00 PM HEALTH INFORMATION MANAGER 05/27/2023 3:29 PM HEALTH INFORMATION MANAGER us Lexie Pearl APRN, CNP CHEMISTRY ORDERABLE S Final Result [facility] [address] [place] [address], documented in this encounter Visit Diagnoses Diagnosis Encounter for pre-employment examination Health examination of defined subpopulation documented in this encounter Care Teams Senior Project Manager Engineering Relationship Specialty Start Date End Date Vivien Cross APRN, CNP [address] [place] [address] PCP - General Advanced Practice Nurse 06/21/21 documented as of this encounter
--- OUTSIDE RECORDS SUMMARY | 2024-07-07 03:32 | XMS_ITS | Encounter Summary ---
Author Organization [facility] Address [address] [place] [address] Phone Care Team Providers Care Practice Professional Name Role Phone Provider, None Primary Care Provider Unavailabl e Reason for Visit * Reason Comments Vomiting Diarrhea Encounter Details Date Type Department Care Team (Latest Contact Info) Description 03/24/2021 9:30 AM CDT Clinical Support [facility] [address] [place] [address] Nurse, [facility] [place] Diarrhea, unspecified type (Primary Dx) Discharge Disposition: Discharged to home or Selfcare Social History Tobacco Use Types Packs/Day Years Used Date Smoking Tobacco: Never Smokeless Tobacco: Never Alcohol Use Standard Drinks/Week Comments Never 0 (1 standard drink = 0.6 oz pur e alcohol) AUDIT-C Answer Date Recorded Frequency of Alcohol Consumption Never 04/24/2019 Average Number of Drinks Not on file 019 Frequency of Binge Drinking Not on file 04/01 Sexually Active Control Partners Comments Never Comments No Sex and Gender Information Value Date Recorded Sex Assigned at Not on file Legal Sex Female 9:24 PM CDT Gender Identity Not on file Sexual Orientation Not on file COVID-19 Exposure Response Date Recorded In the last month, have you been in contact with someone who was confirmed or suspected to have Coronavirus / COVID-19? No / Unsure 03/24/2021 9:27 AM CDT documented as of this encounter Progress Notes * Ti Armendariz RN - 03/24/2021 9:30 AM CDT Patient stated that she had symptoms since yesterday, patient made aware of negative result documented in this encounter Plan of Treatment Not on file documented as of this encounter Procedures Procedure Name Priority Date/Time Associated Diagnosis Comments POCT SARS ANTIGEN SHERRY Routine 03/24/2021 9:59 AM CDT Diarrhea, unspecified type documented in this encounter Results * POCT SARS ANTIGEN SHERRY (03/24/2021 9:59 AM CDT) POC SARS ANTIGEN SHERRY Negative Negative POC SARS ANTIGEN SHERRY CONTROL Hose Sprayer Pass Swab NASAL STRUCTURE / Unknown 03/24/2021 9:59 AM CDT Lexie Pearl MERCHANDISING TEAM LEAD, ELECTRONIC INDUSTRIAL CONTROLS MECHANIC POINT OF CARE TESTI NG (MANUAL) Final Result documented in this encounter Visit Diagnoses Diagnosis Diarrhea, unspecified type- Primary documented in this encounter Care Teams Practice Professional Relationship Specialty Start Date End Date Provider, None [place] PCP - General 04/24/19 06/20/21 documented as of this encounter
--- OUTSIDE RECORDS SUMMARY | 2024-07-07 03:32 | XMS_ITS | Encounter Summary ---
Author Organization [facility] Address [address] [place] [address] Phone Care Team Providers Care Flagsetter Name Role Phone Vivien Cross APRN, CNP Primary Care P chiragder Encounter Details Date Type Department Care Team (Late st Contact Info) Description 04/22/2024 Transcribe Orders [facility] Laboratory Services [address] [place] [address] Nicky Broussard MD [address] [address] Vitamin D deficiency (Primary Dx); screening encounter Social History Tobacco Use Types Packs/Day Years [...] on file documented as of this encounter Results * RPR SCREEN ONLY (04/22/2024 7:34 AM CDT) RPR NONREACTIVE NONREACTIVE 04/23/2024 9:08 AM CDT [facility] Blood Venipuncture / Unknown 04/22/2024 7:34 AM CDT 04/22/2024 7:52 AM CDT us Nicky Broussard MD IMMUNOLOGY ORDERABLES Final Result [facility] [address] [facility] [place] [address], * VITAMIN D, 25 HYDROXY TOTAL (04/22/2024 7:34 AM CDT) VITAMIN D, 25 HYDROX 32.9 ng/mL 04/22/2024 9:10 AM CDT [facility] Blood Venipuncture / Unknown 04/22/2024 7:34 AM CDT 04/22/2024 7:52 AM CDT Narrative [facility] - 04/22/2024 9:10 AM CDT Published reference ranges for Vitamin D vary depending on time and place and method of testing, and on patient's age, sex, ethnicity and levels of other measured analytes such as parathormone, calcium and phosphorus. ??The result should be evaluated in conjunction with clinical findings and suspicions. [place] [employer] and Endocrine Clinical Practice Guidelines: Status Vitamin D levels (ng/mL) Deficient <=20 At risk of inadequacy 21-29 Sufficient 30-100 Centers of Disease Control and Prevention Guidelines: Status Vitamin D levels (ng/mL) Deficient <13 At risk of inadequacy 13-19 Sufficient 20-50 Possibly harmful >50 References: [place] [employer], 2010 Dietary reference intakes for calcium and vitamin D. [place]: ??The National Academies Press. Yeimi M, Aftab N, Celio PALACIO, et al., Evaluation, treatment, and prevention of Vitamin D deficiency: an Endocrinology Clinical Practice Guideline. JCEM 2011 96: 7 1371-5400. Netta A, [place] C, Grace D, et al., Vitamin D Status: ??[place], 2000- 1005, [facility] data brief, no. 59, MD Lucio: ??[facility] for Health Statistics. 2010. Nicky Broussard MD CHEMISTRY ORDERABLES F inal Result Performing Organization Address City/[facility]/ZIP Co de Phone Number [facility] [place] [address] * HIV 1 & 2 ANTIBODY & ANTIGEN SCREEN (04/22/2024 7:34 AM CDT) Pathologist [facility] HIV 1 & 2 ANTIBODY & ANTIGEN SCREEN NON DETECTED NON DETECTED 04/22/2024 3:20 PM CDT [facility] Blood Venipuncture / Unknown 04/22/2024 7:34 AM CDT 04/22/2024 7:52 AM CDT Nicky Broussard MD LAB SEND OUTS Final Result Performing Organization Address City/[facility]/ZIP Co de Phone Number [facility] [address] [place] [address], * HEMOGLOBIN A1C W/ ESTIMATED GLUCOSE (04/22/2024 7:34 AM CDT) HGB-A1C 5.2 4.0 - 6.0 % 04/22/2024 8:52 AM CDT [facility] Est Average Glucose 102.5 mg/dL 04/22/2024 8:52 AM CDT [facility] Blood Venipuncture / Unknown 04/22/2024 7:34 AM CDT 04/22/2024 7:52 AM CDT Narrative [facility] - 04/22/2024 8:52 AM CDT HEMOGLOBIN A1C: DIABETIC PATIENTS: WELL-CONTROLLED: ?? 6.2 - 7.0 INTERMEDIATE WELL-CONTROLLED: ??7.0 - 9.0 POORLY-CONTROLLED: ??>9.0 us Nicky Broussard MD CHEMISTRY ORDERABLES F inal Result [facility] [facility] [place] [address] documented in this encounter Visit Diagnoses Diagnosis Vitamin D deficiency- Primary Unspecified vitamin D deficiency screening encounter Unspecified screening documented in this encounter Care Teams Flagsetter Relationship Specialty Start Date End Date Vivien Cross, COURIER DELIVERY DRIVER, MATERIALS CLERK [address] [place] [address] PCP - General Advanced Practice Nurse 06/21/21 documented as of this encounter
--- OUTSIDE RECORDS SUMMARY | 2024-07-07 03:32 | XMS_ITS | Encounter Summary ---
Author Organization [employer] [facility] Care Team Providers Care Glass Setter Name Role Phone Provider, None Primary Care Provider Unavailabl e Encounter Details Date Type Department Care Team (Latest Contact Info) Description 06/10/2021 Travel Social History Tobacco Use Types Packs/Day Years [...] have Coronavirus / COVID-19? No / Unsure 06/10/2021 12:44 PM [employer] COMMUNICATIONS SERGEANT documented as of this encounter Plan of Treatment Not on file documented as of this encounter Visit Diagnoses Not on filedocumented in this encounter Additional Health Concerns Infection Onset Date Last Indicated Resolved Time COVID - 19 06/10/2021 06/10/2021 06/30/2021 12:1 6 AM [employer] COMMUNICATIONS SERGEANT documented as of this encounter Care Teams Glass Setter Relationship Specialty Start Date End Date Provider, None [place] PCP - General 04/24/19 06/20/21 documented as of this encounter
--- OUTSIDE RECORDS SUMMARY | 2024-07-07 03:32 | XMS_ITS | Encounter Summary ---
Author Organization [facility] Address [address] [place] [address] Phone Care Team Providers Care Triage Assistant Name Role Phone Vivien Cross APRN, CNP Primary Care P zoiesonja Encounter Details Date Type Department Care Team (Late st Contact Info) Description 04/27/2024 2:00 PM CDT Lab [facility] - Primary Care [address] [address] Lab, [facility] Discharge Disposition: Discharged to home or Selfcare [...] on file documented as of this encounter Progress Notes * Annalee Salgado - 04/27/2024 2:00 PM CDT Calvin presents for lab draw per order of Vivien Tay INGE dated 04/27/24. Specimen collected from right antecubital without incident. sah documented in this encounter Miscellaneous Notes * Addendum Note - Tierney Sow - 04/27/2024 2:00 PM CDTAddended by: TIERNEY SOW on: 04/27/2024 03:15 PM Modules accepted: Orders documented in this encounter Plan of Treatment Not on file documented as of this encounter Procedures Procedure Name Priority Date/Time Associated Diagnosis Comments IRON,TRANSFERN,CALC.T IBC,%SAT Routine 04/27/2024 1:45 PM CDT Pica CBC WITH AUTO DIFFERENTIAL Routine 04/27/2024 1:45 PM CDT Pica FERRITIN Routine 04/27/2024 1:45 PM CDT Pica COMPLETE BLOOD COUNT (CBC) WITH DIFF Routine 04/27/2024 1:45 PM CDT Pica documented in this encounter Results * (ABNORMAL) IRON,TRANSFERN,CALC.TIBC,%SAT (04/27/2024 1:45 PM CDT) IRON 32 25 - 156 mcg/dL 04/27/2024 3:43 PM CDT [facility] TRANSFERRIN 374 180 - 382 mg/dL 04/27/2024 3:43 PM CDT [facility] TIBC, CALCULATED 468 265 - 497 mcg/dL 04/27/2024 3:43 PM CDT [facility] % SATURATION * 7(L) 15 - 62 % 04/27/2024 3:43 PM CDT [facility] Blood Venipuncture / Unknown 04/27/2024 1:45 PM CDT 04/27/2024 1:45 PM CDT us Vivien Cross APRN, CNP CHEMISTRY ORDER NANCY Final Result [facility] [place] [address] * (ABNORMAL) CBC WITH AUTO DIFFERENTIAL (04/27/2024 1:45 PM CDT) WBC 8.72 4.00 - 12.00 10(3)/mcL 04/27/2024 3:19 PM CDT [facility] RBC 3.37(L) 3.80 - 5.30 10(6)/mcL 04/27/2024 3:19 PM CDT [facility] HEMOGLOBIN (HGB) 9.4(L) 12.0 - 15.8 g/dL 04/27/2024 3:19 PM CDT [facility] HEMATOCRIT (HCT) 28.2(L) 36.0 - 47.0 % 04/27/2024 3:19 PM CDT [facility] MCV 83.7 82.0 - 96.0 fL 04/27/2024 3:19 PM CDT [facility] MCH 27.9 26.0 - 34.0 pg 04/27/2024 3:19 PM CDT [facility] MCHC 33.3 31.0 - 36.0 g/dL 04/27/2024 3:19 PM CDT [facility] PLATELET COUNT 235 140 - 440 10(3)/mcL 04/27/2024 3:19 PM CDT [facility] RDW 12.5 11.8 - 15.5 % 04/27/2024 3:19 PM CDT [facility] MPV 10.2 9.7 - 12.4 fL 04/27/2024 3:19 PM CDT [facility] NEUTROPHILS 70.8 47.0 - 73.0 % 04/27/2024 3:19 PM CDT [facility] LYMPHOCYTES 18.1 18.0 - 42.0 % 04/27/2024 3:19 PM CDT [facility] MONOCYTES 7.9 4.0 - 12.0 % 04/27/2024 3:19 PM CDT [facility] EOSINOPHILS 3.0 0.0 - 5.0 % 04/27/2024 3:19 PM CDT [facility] BASOPHILS 0.2 0.0 - 1.0 % 04/27/2024 3:19 PM CDT [facility] ABSOLUTE NEUTROPHILS 6.17 1.60 - 7.70 10(3)/mcL 04/27/2024 3:19 PM CDT [facility] ABSOLUTE LYMPHOCYTES 1.58 1.30 - 3.20 10(3)/mcL 04/27/2024 3:19 PM CDT [facility] ABSOLUTE MONOCYTES 0.69 0.20 - 1.00 10(3)/mcL 04/27/2024 3:19 PM CDT [facility] ABSOLUTE EOSINOPHIL 0.26 0.00 - 0.40 10(3)/mcL 04/27/2024 3:19 PM CDT [facility] ABSOLUTE BASOPHILS 0.02 0.00 - 0.10 10(3)/mcL 04/27/2024 3:19 PM CDT [facility] NRBC PER 100 WBC 0 04/27/20 3:19 PM CDT [facility] Blood Venipuncture / Unknown 04/27/2024 1:45 PM CDT 04/27/2024 1:45 PM CDT us Vivien Cross APRN, MECHELLE HEMATOLOGY ORDE NIR Final Result [facility] [address] [place] [address] * FERRITIN (04/27/2024 1:45 PM CDT) Pathologist [facility] FERRITIN 6 5 - 204 ng/mL 04/27/2024 3:52 PM CDT [facility] Blood Venipuncture / Unknown 04/27/2024 1:45 PM CDT 04/27/2024 1:45 PM CDT Vivien Cross APRN, CNP CHEMISTRY ORDER NANCY Final Result [facility] [address] [place] [address] documented in this encounter Visit Diagnoses Diagnosis Pica documented in this encounter Care Teams Triage Assistant Relationship Specialty Start Date End Date Vivien Cross APRN, CNP [address] [place] [address] PCP - General Advanced Practice Nurse 06/21/21 documented as of this encounter
--- OUTSIDE RECORDS SUMMARY | 2024-07-07 03:32 | XMS_ITS | Encounter Summary ---
Author Organization [facility] Address [address] [place] [address] Phone Care Team Providers Care Loss Prevention Coordinator Name Role Phone Vivien Cross APRN, DINING ROOM ATTENDANT CAFETERIA Primary Care P roanselmoder Encounter Details Date Type Department Care Team (Latest Contact Info) Description 01/07/2024 Transcribe [facility] [address] [place] [id number] Lexie Pearl APRN, DINING ROOM ATTENDANT CAFETERIA [address] [place] [address] Immunity status testing (Primary Dx) Social History Tobacco Use Types Packs/Day Years [...] documented as of this encounter Results * HEPATITIS B SURFACE ANTIBODY (HBSAB) (04/22/2024 7:34 AM CDT) HEPATITIS B SURFACE ANTIBODY 40.22 mIU/mL 04/22/2024 4:[address] [facility] Comment: Detected Range: >12.00 Individual is considered immune to HBV infection Blood Venipuncture / Unknown 04/22/2024 7:34 AM CDT 04/22/2024 7:52 AM CDT us Lexie Pearl APRN, MECHELLE CHEMISTRY ORDERABLE S Final Result [facility] [address] [place] [address], [place] documented in this encounter Visit Diagnoses Diagnosis Immunity status testing- Primary Antibody response examination documented in this encounter Care Teams Loss Prevention Coordinator Relationship Specialty Start Date End Date Vivien Cross APRN, DINING ROOM ATTENDANT CAFETERIA [address] [place] [address] PCP - General Advanced Practice Nurse 06/21/21 documented as of this encounter
--- OUTSIDE RECORDS SUMMARY | 2024-07-07 03:32 | XMS_ITS | Clinical Summary ---
Author Organization [facility] Address [address] [place] [address] Phone Care Team Providers Care Erp Implementation Consultant Name Role Phone Vivien Cross APRN, STOVE TENDER Primary Care P rovider Allergies No known active allergies Medications cyanocobalamin (VITAMIN B-12) 1000 MCG/ML SolutionIndica tions:Vitamin B12 deficiency 1 mL by Intramuscular route once a week. 6 mL 4 Active ergocalciferol (VITAMIN D) 24644 UNIT CapsuleIndicat ions:Vitamin D deficiency Take 1 Capsule by mouth once a week. 12 Capsule 3 4 Active NEEDLE, DISP, 25 G 25G X 1 MiscIndication s:Vitamin B12 deficiency Use with B12 IM. Ok to substitute if needed 6 Each 4 Active Syringe, Disposable, (Luer Lock Safety Syringes) 3 ML MiscIndication s:Vitamin B12 deficiency Use with B12 IM. Ok to substitute if needed 6 Each 4 Active clobetasol (TEMOVATE) 0.05 % OintmentIndica tions:Dyshidro tic eczema Rub very small amount into affected skin BID prn 15 g 4 Active Active Problems No known active problems Encounters Date Type Department Care Team Description 06/12/2024 Telephone [facility] - Primary Care - [place] [address] [place] [address] Vivien Cross APRN, STOVE TENDER 05/07/2024 Telephone [facility] [address] [place] [address] Vivien Cross APRN, MECHELLE Medical records 04/27/2024 2:00 PM CDT Lab [place] [address] [place] [phone] Lab, [address] [address] [place] Discharge Disposition: Discharged to home or Selfcare 04/27/2024 Travel 04/24/2024 Telephone [facility] [address] [place] [address] Vivien Cross APRN, MECHELLE 04/22/2024 Transcribe Orders [facility] Services [address] [place] [address] Nicky Broussard MD Vitamin D deficiency (Primary Dx); screening encounter 04/22/2024 Travel from Last 3 Months Immunizations Immunization Administration Dates Next Due DTAP VACCINE 10/25/2005, 2,05/01/2001,2000,2000 HIB Vaccine (PRP-T) 02/10/2002, 1,02/21/2001,2000 Hepatitis B Vaccine 05/01/2001,2000,2000 Inactivated Polio Vaccine 10/25/2005,,02/21/2001,2000 Influenza, Injectable, Quadrivalent 05/28/2021 MMR Vaccine 10/25/2022,11/27/2001 Meningococcal Vaccine 02/25/2018,02/21/2015 Pneumococcal Vaccine Peds - 7 Valent ,05/01/2001,02/21/2001,2000 TDAP Vaccine 02/15/2012 Family History Medical History Relation Name Comments No Known Problems Father No Known Problems Mother Relation Name Status Comments Father Alive Mother Alive Social History Tobacco Use Types Packs/Day Years Used Date Smoking Tobacco: Never Smokeless Tobacco: Never Tobacco Cessation:Counseling Given: No Alcohol Use Standard Drinks/Week Comments Never 0 [...] on file Sexual Orientation Not on file Last Filed Vital Signs Vital Sign Reading Time Taken Comments Blood Pressure 104/64 06/21/2021 9:02 AM FISH DRESSING MACHINE FEEDER Pulse 110 06/21/2021 9:02 AM FISH DRESSING MACHINE FEEDER Temperature 36.7 ??C (98.1 ??F) 06/21/2021 9:02 AM CS T Respiratory Rate 20 06/21/2021 9:02 AM FISH DRESSING MACHINE FEEDER Oxygen Saturation 98% 06/21/2021 9:02 AM FISH DRESSING MACHINE FEEDER Inhaled Oxygen Concentration - - Weight 72.1 kg (159 lb) 06/21/2021 9:02 AM FISH DRESSING MACHINE FEEDER Height 177.8 cm (5' 10 ) 06/21/2021 9:02 AM FISH DRESSING MACHINE FEEDER Body Mass Index 22.81 06/21/2021 9:02 AM FISH DRESSING MACHINE FEEDER Plan of Treatment Health Maintenance Due Date Last Done Comments Human Papillomavirus (HPV) Immunization (1 - 3-dose series) 10/23/2015 Meningococcal B Immunization (1 of 2 - Standard) 2016 Pap Smear 2021 DTaP/Tdap/Td Immunization (7 - Td or Tdap) 02/14/2022 02/15/2012, 10/25/2005, 02/10/2002, Additional history exists Influenza Immunization (#1) 2024 05/28/2021 SARS-COV-2 Immunization ( - season) 2024 Respiratory Syncytial Virus (RSV) Immunization (Adult) (1 - 1-dose 75+ series) 10/23/2075 Hepatitis B Immunization Completed 001, 2000, 2000 Pneumococcal Immunization Combined Aged Out 02/10/2002, 05/01/2001, 02/21/2001, Additional history exists No longer eligible based on patient's age to complete this topic Polio (IPV) Immunization Discontinued 006, 02/10/2002, 02/21/2001, Additional history exists Meningococcal Immunization (ACWY) Completed 02/25/2018, 02/21/2015 Measles Mumps Rubella (MMR) Immunization Discontinued 10/25/2022, 11/27/2001 Hepatitis C Virus (HCV) Screening Completed 12/25/2023 Rotavirus Immunization Aged Out No lo nger eligible based on patient's age to complete this topic Procedures Procedure Name Priority Date/Time Associated Diagnosis Comments CBC WITH AUTO DIFFERENTIAL Routine 04/27/2024 1:45 PM CDT [place] IRON,TRANSFERN,CALC.T IBC,%SAT Routine 04/27/2024 1:45 PM CDT [place] COMPLETE BLOOD COUNT (CBC) WITH DIFF Routine 04/27/2024 1:45 PM CDT [place] FERRITIN Routine 04/27/2024 1:45 PM CDT [place] POST LOAD GLUCOSE - GLPML Routine 04/22/2024 8:05 AM CDT Immunity status testing Vitamin D deficiency screening encounter GLUCOSE POST MEASURED LOAD Routine 04/22/2024 8:05 AM CDT Immunity status testing Vitamin D deficiency screening encounter RPR SCREEN ONLY Routine 04/22/2024 7:34 AM CDT Vitamin D deficiency screening encounter VITAMIN D, 25 HYDROXY TOTAL Routine 04/22/2024 7:34 AM CDT Vitamin D deficiency screening encounter HIV 1 & 2 ANTIBODY & ANTIGEN SCREEN Routine 04/22/2024 7:34 AM CDT Vitamin D deficiency screening encounter HEMOGLOBIN A1C W/ ESTIMATED GLUCOSE Routine 04/22/2024 7:34 AM CDT Vitamin D deficiency screening encounter HEPATITIS B SURFACE ANTIBODY (HBSAB) Routine 04/22/2024 7:34 AM CDT Immunity status testing HEPATITIS C ANTIBODY Routine 12/25/2023 11:41 AM CDT Encounter for screening of mother from Last 3 Months or Most Recently Relevant to Health Maintenance Results * (ABNORMAL) IRON,TRANSFERN,CALC.TIBC,%SAT (04/27/2024 1:45 PM CDT) Pathologist [facility] IRON 32 25 - 156 mcg/dL 04/27/2024 3:43 PM CDT [facility] TRANSFERRIN 374 180 - 382 mg/dL 04/27/2024 3:43 PM CDT [facility] TIBC, CALCULATED 468 265 - 497 mcg/dL 04/27/2024 3:43 PM CDT [facility] % SATURATION * 7(L) 15 - 62 % 04/27/2024 3:43 PM CDT [facility] Blood Venipuncture / Unknown 04/27/2024 1:45 PM CDT 04/27/2024 1:45 PM CDT us Vivien Cross APRN, STOVE TENDER CHEMISTRY ORDER NANCY Final Result [facility] [address] [place] [address] * (ABNORMAL) CBC WITH AUTO DIFFERENTIAL (04/27/2024 1:45 PM CDT) WBC 8.72 4.00 - 12.00 10(3)/mcL 04/27/2024 3:19 PM CDT [facility] RBC 3.37(L) 3.80 - 5.30 10(6)/mcL 04/27/2024 3:19 PM CDT [facility] HEMOGLOBIN (HGB) 9.4(L) 12.0 - 15.8 g/dL 04/27/2024 3:19 PM CDT [facility] HEMATOCRIT (HCT) 28.2(L) 36.0 - 47.0 % 04/27/2024 3:19 PM CDT [facility] MCV 83.7 82.0 - 96.0 fL 04/27/2024 3:19 PM CDT [facility] MCH 27.9 26.0 - 34.0 pg 04/27/2024 3:19 PM CDT [facility] MCHC 33.3 31.0 - 36.0 g/dL 04/27/2024 3:19 PM CDT [facility] PLATELET COUNT 235 140 - 440 10(3)/mcL 04/27/2024 3:19 PM CDT [facility] RDW 12.5 11.8 - 15.5 % 04/27/2024 3:19 PM CDT [facility] MPV 10.2 9.7 - 12.4 fL 04/27/2024 3:19 PM CDT [facility] NEUTROPHILS 70.8 47.0 - 73.0 % 04/27/2024 3:19 PM CDT [facility] LYMPHOCYTES 18.1 18.0 - 42.0 % 04/27/2024 3:19 PM CDT [facility] MONOCYTES 7.9 4.0 - 12.0 % 04/27/2024 3:19 PM CDT [facility] EOSINOPHILS 3.0 0.0 - 5.0 % 04/27/2024 3:19 PM CDT [facility] BASOPHILS 0.2 0.0 - 1.0 % 04/27/2024 3:19 PM CDT [facility] ABSOLUTE NEUTROPHILS 6.17 1.60 - 7.70 10(3)/mcL 04/27/2024 3:19 PM CDT [facility] ABSOLUTE LYMPHOCYTES 1.58 1.30 - 3.20 10(3)/mcL 04/27/2024 3:19 PM CDT [facility] ABSOLUTE MONOCYTES 0.69 0.20 - 1.00 10(3)/mcL 04/27/2024 3:19 PM CDT [facility] ABSOLUTE EOSINOPHIL 0.26 0.00 - 0.40 10(3)/mcL 04/27/2024 3:19 PM CDT [facility] ABSOLUTE BASOPHILS 0.02 0.00 - 0.10 10(3)/[facility] 04/27/2024 3:19 PM CDT [facility] NRBC PER 100 WBC 0 04/27/20 3:19 PM CDT [facility] Blood Venipuncture / Unknown 04/27/2024 1:45 PM CDT 04/27/2024 1:45 PM CDT Vivien Cross APRN, MECHELLE HEMATOLOGY ORDE RABLES Final Result [facility] [address] [place] [address] * FERRITIN (04/27/2024 1:45 PM CDT) [facility] FERRITIN 6 5 - 204 ng/mL 04/27/2024 3:52 PM CDT [facility] Blood Venipuncture / Unknown 04/27/2024 1:45 PM CDT 04/27/2024 1:45 PM CDT Vivien Cross APRN, CNP CHEMISTRY ORDER NANCY Final Result [facility] [address] [place] [address] * POST LOAD GLUCOSE - GLPML (04/22/2024 8:05 AM CDT) Pathologist [facility] DOSE 50 g 04/22/2024 9:56 AM CDT [facility] POSTLOAD GLUCOSE 112 70 - 140 mg/dL 04/22/2024 9:56 AM CDT [facility] Comment: 1 hr post 50 GM Load>140 mg/dL indicates the need for a full diagnostic Glucose Tolerance Test. Criteria from the National Diabetes Data Group of the NIH HOURS POST LOAD 1 9:56 AM CDT [facility] Blood Venipuncture / Unknown 04/22/2024 8:05 AM CDT 04/22/2024 8:43 AM CDT us Nicky Broussard MD CHEMISTRY ORDERABLES F inal Result [facility] [address] [place] [address] * VITAMIN D, 25 HYDROXY TOTAL (04/22/2024 7:34 AM CDT) VITAMIN D, 25 HYDROX 32.9 ng/mL 04/22/2024 9:10 AM CDT [facility] Blood Venipuncture / Unknown 04/22/2024 7:34 AM CDT 04/22/2024 7:52 AM CDT Narrative [facility] - 04/22/2024 9:10 AM CDT Published reference ranges for Vitamin D vary depending on time and place and method of testing, and on patient's age, sex, ethnicity and levels of other measured analytes such as parathormone, calcium and phosphorus. ??The result should be evaluated in conjunction with clinical findings and suspicions. [place] [employer] and Endocrine Clinical Practice Guidelines: Status Vitamin D levels (ng/mL) Deficient <=20 At risk of inadequacy 21-29 Sufficient 30-100 Centers of Disease Control and Prevention Guidelines: Status Vitamin D levels (ng/mL) Deficient <13 At risk of inadequacy 13-19 Sufficient 20-50 Possibly harmful >50 References: [place] [employer], 2010 Dietary reference intakes for calcium and vitamin D. [place]: ??The National Academies Press. Yeimi Valdes, Aftab Victor, Celio PALACIO, et al., Evaluation, treatment, and prevention of Vitamin D deficiency: an Endocrinology Clinical Practice Guideline. JCEM 2011 96: 7 6976-8924. Netta A, [place] C, Grace D, et al., Vitamin D Status: ??[place], 2000- 1005, [facility] data brief, no. 59, MD [place]: ??National [place] for Health Statistics. 2010. us Nicky Broussard MD CHEMISTRY ORDERABLES F inal Result [facility] [address] [place] [address] * HIV 1 & 2 ANTIBODY & ANTIGEN SCREEN (04/22/2024 7:34 AM CDT) [facility] HIV 1 & 2 ANTIBODY & ANTIGEN SCREEN NON DETECTED NON DETECTED 04/22/2024 3:20 PM CDT [facility] Blood Venipuncture / Unknown 04/22/2024 7:34 AM CDT 04/22/2024 7:52 AM CDT Nicky Broussard MD LAB SEND OUTS Final Result Performing Organization Address City/[facility]/ZIP Co de Phone Number [facility] [address] [place] [address], * HEMOGLOBIN A1C W/ ESTIMATED GLUCOSE (04/22/2024 7:34 AM CDT) [facility] HGB-A1C 5.2 4.0 - 6.0 % 04/22/2024 8:52 AM CDT [facility] Est Average Glucose 102.5 mg/dL 04/22/2024 8:52 AM CDT [facility] Blood Venipuncture / Unknown 04/22/2024 7:34 AM CDT 04/22/2024 7:52 AM CDT Narrative [facility] - 04/22/2024 8:52 AM CDT HEMOGLOBIN A1C: DIABETIC PATIENTS: WELL-CONTROLLED: ?? 6.2 - 7.0 INTERMEDIATE WELL-CONTROLLED: ??7.0 - 9.0 POORLY-CONTROLLED: ??>9.0 Nicky Broussard MD CHEMISTRY ORDERABLES F inal Result Performing Organization Address City/[facility] Co de Phone Number [facility] [address] [place] [address] * RPR SCREEN ONLY (04/22/2024 7:34 AM CDT) RPR NONREACTIVE NONREACTIVE 04/23/2024 9:08 AM CDT [facility] Blood Venipuncture / Unknown 04/22/2024 7:34 AM CDT 04/22/2024 7:52 AM CDT Nicky Broussard MD IMMUNOLOGY ORDERABLES Final Result Performing Organization Address [facility] Co de Phone Number [facility] [address] [place] [address], [place] * HEPATITIS B SURFACE ANTIBODY (HBSAB) (04/22/2024 7:34 AM CDT) HEPATITIS B SURFACE ANTIBODY 40.22 mIU/mL 04/22/2024 4:15 PM CDT [facility] Comment: Detected Range: >12.00 Individual is considered immune to HBV infection Blood Venipuncture / Unknown 04/22/2024 7:34 AM CDT 04/22/2024 7:52 AM CDT us Lexie Pearl MACHINE OPERATIONS SUPERVISOR, STOVE TENDER CHEMISTRY ORDERABLE S Final Result Performing Organization Address [facility] Co de Phone Number [facility] [address] [place] [address], [place] * HEPATITIS C ANTIBODY (12/25/2023 11:41 AM CDT) hepatitis C antibody 0.07 <1 S/CO 12/25/2023 9:19 PM CDT [facility] Comment: Signal/Cutoff ratio ??< 0.79 is Nondetected Signal/Cutoff ratio 0.80-0.99 is Grayzone Signal/Cutoff ratio > 0.99 is Detected Supplemental assays are recommended if signal/cutoff ratio is >/=1.00. ??Signal/cutoff ratio result >/= 5.00 is 97% predictive of positivity for recombinant immunoblot assay (RIBA) and will be reported to the [place] Department of Public Health as required. Blood Venipuncture / Unknown 12/25/2023 11:41 AM CDT 12/25/2023 12:04 PM CDT us Vivien Cross APRN, CNP CHEMISTRY ORDER NANCY Final Result [facility] [address] [place] [address], [place] from Last 3 Months or Most Recently Relevant to Health Maintenance Insurance [employer] * Guarantor: [facility] [employer] Account Type Relation to Patient Date of Phone Billing Address Institutional Other [address] [place] [address] Care Teams Erp Implementation Consultant Relationship Specialty Start Date End Date Vivien Cross APRN, STOVE TENDER [address] [place] [id number] PCP - General Advanced Practice Nurse 06/21/21
--- OUTSIDE RECORDS SUMMARY | 2024-07-07 03:32 | XMS_ITS | Encounter Summary ---
Author Organization [facility] Address [address] [place] [address] Phone Care Team Providers Care Camera Supervisor Name Role Phone Vivien Cross APRN, CNP Primary Care P rovider Reason for Visit * Reason Onset Date Comments Results 07/13/2021 Holter Monitor Encounter Details Date Type Department Care Team (Late st Contact Info) Description 07/13/2021 Telephone [facility] - Primary Care - [place] [address] [place] [address] Vivien Cross APRN, CNP [address] [place] [address] Results (Holter Monitor ) Social History Tobacco Use Types Packs/Day Years [...] have Coronavirus / COVID-19? No / Unsure 07/07/2021 1:05 PM DIRECTOR TECHNICAL documented as of this encounter Miscellaneous Notes * Telephone Encounter - Elva Childers RN - 07/13/2021 11:41 AM CST Phoned patient with test results. Patient aware and verbalized understanding. No questions for screenplay writer. Pt agreeable to f/u with GI. CTOR TECHNICAL * Telephone Encounter - Elva Childers RN - 07/13/2021 11:41 AM CST ----- Message from Vivien Cross APRN, CNP sent at 07/13/2021 10:49 AM DIRECTOR TECHNICAL ----- Please advise patient that the monitor 16 patient report events and none of them appeared rhythm related. Avg HR was 88. Continue to monitor HR. F/u with GI as discussed. CTOR TECHNICAL documented in this encounter Plan of Treatment Not on file documented as of this encounter Visit Diagnoses Not on filedocumented in this encounter Care Teams Camera Supervisor Relationship Specialty Start Date End Date Vivien Cross APRN, CNP [address] [place] [address] PCP - General Advanced Practice Nurse 06/21/21 documented as of this encounter
--- OUTSIDE RECORDS SUMMARY | 2024-07-07 03:32 | XMS_ITS | Encounter Summary ---
Author Organization [facility] Care Team Providers Care Boring Machine Set Up Operator Jig Name Role Phone Vivien Cross APRN, CNP Primary Care P rovider Encounter Details Date Type Department Care Team (Latest Contact Info) Description 02/12/2024 Travel Social History Tobacco Use Types Packs/Day [...] on filedocumented in this encounter Care Teams Boring Machine Set Up Operator Jig Relationship Specialty Start Date End Date Vivien Cross APRN, CNP [address] [place] [address] PCP - General Advanced Practice Nurse 06/21/21 documented as of this encounter
--- OUTSIDE RECORDS SUMMARY | 2024-07-07 03:32 | XMS_ITS | Encounter Summary ---
Author Organization [facility] Address [address] [place] [address] Phone Care Team Providers Care Health Physics Technician Name Role Phone Vivien Cross APRN, CNP Primary Care P rovider Encounter Details Date Type Department Care Team (Late st Contact Info) Description 04/24/2024 Telephone [facility] - Primary Care - [place] [address] [place] [address] Vivien Cross APRN METAL GAUGE MAKER [address] [place] [address] Social History Tobacco Use Types [...] Encounter - Vivien Cross APRN, CNP - 04/24/2024 4:12 PM CDT Eating ice constantly. Iron labs ordered documented in this encounter Plan of Treatment Not on file documented as of this encounter Results * FERRITIN (04/27/2024 1:45 PM CDT) FERRITIN 6 5 - 204 ng/mL 04/27/2024 3:52 PM CDT [facility] Blood Venipuncture / Unknown 04/27/2024 1:45 PM CDT 04/27/2024 1:45 PM CDT Vivien Cross APRN, CNP CHEMISTRY ORDER NANCY Final Result [facility] [address] [place] [address] documented in this encounter Visit Diagnoses Diagnosis [place]- Primary documented in this encounter Care Teams Health Physics Technician Relationship Specialty Start Date End Date Vivien Cross APRN, CNP [address] [place] [address] PCP - General Advanced Practice Nurse 06/21/21 documented as of this encounter
--- OUTSIDE RECORDS SUMMARY | 2024-07-07 03:32 | XMS_ITS | Encounter Summary ---
Author Organization [employer] Care Team Providers Care Security Police Officer Name Role Phone Vivien Cross APRN, CNP Primary Care P rovider Encounter Details Date Type Department Care Team (Latest Contact Info) Description 04/22/2024 Travel Social History Tobacco Use Types Packs/Day [...] on filedocumented in this encounter Care Teams Security Police Officer Relationship Specialty Start Date End Date Vivien Cross APRN, CNP [address] [place] [address] PCP - General Advanced Practice Nurse 06/21/21 documented as of this encounter
--- OUTSIDE RECORDS SUMMARY | 2024-07-07 03:32 | XMS_ITS | Encounter Summary ---
Author Organization [facility] Address [address] [place] [address] Phone Care Team Providers Care Architectural Associate Name Role Phone Vivien Cross APRN, CNP Primary Care P rovider Encounter Details Date Type Department Care Team (Late st Contact Info) Description 05/27/2023 Lab Requisition [facility] Services [address] [place] [address] System, Referring Not In [place] Social History Tobacco Use Types Packs/Day Years [...] on filedocumented in this encounter Care Teams Architectural Associate Relationship Specialty Start Date End Date Vivien Cross APRN, CNP [address] [place] [address] PCP - General Advanced Practice Nurse 06/21/21 documented as of this encounter
--- OUTSIDE RECORDS SUMMARY | 2024-07-07 03:32 | XMS_ITS | Encounter Summary ---
Author Organization [employer] Care Team Providers Care Medical Center Manager Name Role Phone Vivien Cross APRN, CNP Primary Care P rovider Encounter Details Date Type Department Care Team (Latest Contact Info) Description 12/25/2023 Travel Social History Tobacco Use Types Packs/Day [...] on filedocumented in this encounter Care Teams Medical Center Manager Relationship Specialty Start Date End Date Vivien Cross APRN, CNP [address] [place] [address] PCP - General Advanced Practice Nurse 06/21/21 documented as of this encounter
--- OUTSIDE RECORDS SUMMARY | 2024-07-07 03:32 | XMS_ITS | Encounter Summary ---
Author Organization [employer] Care Team Providers Care Director Validation Name Role Phone Provider, None Primary Care Provider Unavailabl e Encounter Details Date Type Department Care Team (Latest Contact Info) Description 06/20/2021 Travel Social History Tobacco Use Types Packs/Day [...] COVID-19? No / Unsure 06/10/2021 12:44 PM FURNITURE SALES ASSOCIATE documented as of this encounter Plan of Treatment Not on file documented as of this encounter Visit Diagnoses Not on filedocumented in this encounter Additional Health Concerns Infection Onset Date Last Indicated Resolved Time COVID - 19 06/10/2021 06/10/2021 06/30/2021 12:1 6 AM FURNITURE SALES ASSOCIATE documented as of this encounter Care Teams Director Validation Relationship Specialty Start Date End Date Provider, None [place] PCP - General 04/24/19 06/20/21 documented as of this encounter
--- OUTSIDE RECORDS SUMMARY | 2024-07-07 03:32 | XMS_ITS | Encounter Summary ---
Author Organization [facility] Address [address] [place] [address] Phone Care Team Providers Care Diesel Roller Operator Name Role Phone Vivien Cross APRN, CNP Primary Care P rovider Reason for Visit * Reason Onset Date Comments Medical records 05/07/2024 Encounter Details Date Type Department Care Team (Late st Contact Info) Description 05/07/2024 Telephone [facility] - Primary Care - [place] [address] [place] [address] Vivien Cross APRN, CNP [address] [place] [address] Medical records Social History Tobacco Use Types Packs/Day Years [...] encounter Miscellaneous Notes * Telephone Encounter - Alayna Wen RN - 05/07/2024 10:48 AM EQUAL OPPORTUNITY ASSISTANT Recent labs faxed to Dr. Broussard's office at [phone] per patient request. L OPPORTUNITY ASSISTANT documented in this encounter Plan of Treatment Not on file documented as of this encounter Visit Diagnoses Not on filedocumented in this encounter Care Teams Diesel Roller Operator Relationship Specialty Start Date End Date Vivien Cross APRN, HORSE RIDER [address] [place] [address] PCP - General Advanced Practice Nurse 06/21/21 documented as of this encounter
--- OUTSIDE RECORDS SUMMARY | 2024-07-07 03:32 | XMS_ITS | Encounter Summary ---
Author Organization [facility] Address [address] [place] [address] Phone Care Team Providers Care Architect Naval Name Role Phone Vivien Cross APRN, CNP Primary Care P rovider Reason for Referral * Radiology Services (Routine) - Closed Specialty Diagnoses / Procedures Referred By Joe t Referred To Contact Radiology Diagnoses Palpitations Tachycardia Procedures HOLTER MONITOR RECORDING ONLY-48 HOUR HOLTER MONITOR RECORDING & ANALYSIS-48 HOUR Vivien Cross APRN, CNP [address] [place] [address] Phone: tel: fax: Referral ID Status Reason Start Date Expiration Date Visits Re quested Visits Authorized [id number] Closed 06/21/2021 1 1 CTOR QUALITY SYSTEMS Reason for Visit * Reason Comments Rapid Heart Rate Heartburn Encounter Details Date Type Department Care Team (Late st Contact Info) Description 06/21/2021 9:00 AM DIRECTOR QUALITY SYSTEMS Office Visit [facility] - Primary Care - [place] [address] [place] [address] Vivien Cross APRN, CNP [address] [place] [address] Palpitations (Primary Dx); Tachycardia; Gastroesophageal reflux disease, unspecified whether esophagitis present; Preventative health care (Adult) Discharge Disposition: Discharged to home or Selfcare [...] No / Unsure 07/07/2021 1:05 PM DIRECTOR QUALITY SYSTEMS documented as of this encounter Last Filed Vital Signs Vital Sign Reading Time Taken Comments Blood Pressure 104/64 06/21/2021 9:02 AM DIRECTOR QUALITY SYSTEMS Pulse 110 06/21/2021 9:02 AM DIRECTOR QUALITY SYSTEMS Temperature 36.7 ??C (98.1 ??F) 06/21/2021 9:02 AM CS T Respiratory Rate 20 06/21/2021 9:02 AM DIRECTOR QUALITY SYSTEMS Oxygen Saturation 98% 06/21/2021 9:02 AM DIRECTOR QUALITY SYSTEMS Inhaled Oxygen Concentration - - Weight 72.1 kg (159 lb) 06/21/2021 9:02 AM DIRECTOR QUALITY SYSTEMS Height 177.8 cm (5' 10 ) 06/21/2021 9:02 AM DIRECTOR QUALITY SYSTEMS Body Mass Index 22.81 06/21/2021 9:02 AM DIRECTOR QUALITY SYSTEMS documented in this encounter Patient Instructions * Patient Instructions* Vivien Cross APRN, GANG PUNCH OPERATOR - 06/21/2021 9:00 AM DIRECTOR QUALITY SYSTEMS Have labs done today, the results will be released to MyChart when available. Please continue with a balanced lifestyle of exercise and healthy eating. If any question, please call. Thanks for coming in today! CTOR QUALITY SYSTEMS CTOR QUALITY SYSTEMS CTOR QUALITY SYSTEMS documented in this encounter Progress Notes * Kelsi Garsia CMA - 06/21/2021 9:00 AM CST Calvin Granado, 20 y.o., female is here for Rapid Heart Rate and Heartburn Medication Refills: Patient reports/denies need for medication refills. Orders Pended: no Requested Prescriptions No prescriptions requested or ordered in this encounter Home Medications Medication Sig Start Date End Date Taking? Authorizing Provider Sprintec 28 0.25-35 MG-MCG Tablet 04/28/21 Provider, MD Yesy There are no discontinued medications. I have reviewed the home medication list with the patient and have reconciled discrepancies. The list is accurate to the best of my knowledge. Smoking Status: Social History Tobacco Use ??? Smoking status: Never Smoker ??? Smokeless tobacco: Never Used Vaping Use ??? Vaping Use: Never used Substance Use Topics ??? Alcohol use: Never ??? Drug use: Never Smoking Cessation Counseling Given: no Health Care Maintenance: Health Maintenance Due Topic Date Due ??? DTaP/Tdap/Td Immunization (1 - Tdap) Never done ??? Meningococcal B Immunization (1 of 2 - Risk Bexsero 2-dose series) Never done ??? Human Papillomavirus (HPV) Immunization (1 - 2-dose series) Never done ??? SARS-COV-2 Immunization (1) Never done Orders Pended: no The following BPA's have been addressed with the patient today: N/A CTOR QUALITY SYSTEMS * Vivien Cross APRN, CNP - 06/21/2021 9:00 AM CST [facility] [address] [address] Dept: [phone] Dept Loc: [phone] Loc Patient: Calvin Granado : 2000 Sex: female Subjective: HPI: Calvin Granado presents for Rapid Heart Rate and Heartburn Reports HR rests between 90-110 and will spike for no reason - has been up to 180 before. Feels her chest pounding and in her ear. States she was at dinner the other day and she went from looking at her phone to looking up and she got super dizzy, it took a couple minutes and it passed without any intervention. Reports also gets bad heartburn daily, causes globus sensation and a cough. She uses tums with mod relief. Reports majority of her family members have had to have their throat stretched in their early 20s for similar symptoms and choking. She states she chokes on liquids a lot. ROS Fourteen point review of systems negative except as documented in HPI. Objective: Vitals: 06/21/21 0902 BP: 104/64 BP Location: Right Arm BP Position: Sitting BP Cuff Size: Regular Pulse: 110 Resp: 20 Temp: 98.1 ??F (36.7 ??C) TempSrc: Temporal SpO2: 98% Weight: 159 lb (72.1 kg) Height: 5' 10 (1.778 m) LMP 06/06/2020 (Approximate) Physical Exam Vitals and nursing note reviewed. Constitutional: General: She is not in acute distress. Appearance: Normal appearance. She is well-developed. HENT: Head: Normocephalic and atraumatic. Right Ear: Tympanic membrane, ear canal and external ear normal. Left Ear: Tympanic membrane, ear canal and external ear normal. Nose: Nose normal. Mouth/Throat: Mouth: Mucous membranes are moist. Pharynx: Oropharynx is clear. No oropharyngeal exudate. Eyes: Conjunctiva/sclera: Conjunctivae normal. Pupils: Pupils are equal, round, and reactive to light. Neck: Thyroid: No thyromegaly. Vascular: No carotid bruit. Cardiovascular: Rate and Rhythm: Normal rate and regular rhythm. Pulses: Normal pulses. Heart sounds: Normal heart sounds. No murmur heard. No friction rub. No gallop. Pulmonary: Effort: Pulmonary effort is normal. No respiratory distress. Breath sounds: Normal breath sounds. No wheezing or rales. Chest: Chest wall: No tenderness. Abdominal: General: Bowel sounds are normal. There is no distension. Palpations: Abdomen is soft. There is no mass. Tenderness: There is no abdominal tenderness. There is no guarding or rebound. Musculoskeletal: General: No tenderness. Normal range of motion. Cervical back: Normal range of motion and neck supple. Right lower leg: No edema. Left lower leg: No edema. Lymphadenopathy: Cervical: No cervical adenopathy. Skin: General: Skin is warm and dry. Neurological: Mental Status: She is alert and oriented to person, place, and time. Coordination: Coordination normal. Psychiatric: Mood and Affect: Mood normal. Behavior: Behavior normal. Thought Content: Thought content normal. Judgment: Judgment normal. Medical Decision Making: Assessment & Plan Diagnoses and all orders for this visit: Palpitations - HOLTER MONITOR RECORDING & ANALYSIS-48 HOUR; Future Tachycardia - HOLTER MONITOR RECORDING & ANALYSIS-48 HOUR; Future Gastroesophageal reflux disease, unspecified whether esophagitis present - famotidine (PEPCID) 20 MG Tablet; Take 1 Tablet by mouth every evening. - GASTROENTEROLOGY REFERRAL; Future Preventative health care (Adult) - COMPLETE BLOOD COUNT (CBC) WITH DIFF; Future - CMP (COMPREHENSIVE METABOLIC PANEL); Future - Cancel: LIPID PANEL; Future - THYROID SCREEN WITH REFLEX; Future Other orders - Sprintec 28 0.25-35 MG-MCG Tablet holter monitor ordered. Advised to avoid all caffeine pepcid nightly Gi referral for poss EGD Labs today Follow-up Information Return if symptoms worsen or fail to improve. [employer] QUALITY SYSTEMS documented in this encounter Miscellaneous Notes * Addendum Note - Eun Munson RMA - 06/21/2021 9:00 AM CSTAddended by: EUN MUNSON on: 06/21/2021 10:19 AM Modules accepted: Orders CTOR QUALITY SYSTEMS * Addendum Note - Kelsi Perez CMA - 06/21/2021 9:00 AM CSTAddended by: KELSI PEREZ. on: 06/20/2022 11:40 AM Modules accepted: Orders [employer]OR QUALITY SYSTEMS documented in this encounter Plan of Treatment Not on file documented as of this encounter Results * HOLTER MONITOR RECORDING ONLY-48 HOUR (07/07/2021 1:24 PM DIRECTOR QUALITY SYSTEMS) Anatomical Region Laterality Modality CARDIO N/A Electrocardiogra phy Narrative 07/13/2021 10:30 AM DIRECTOR QUALITY SYSTEMS This is an e-Patch monitoring report performed for 48 hours with 253,626 beats. Minimum heart rate was 51 with a maximum heart rate of 165 beats per minute in sinus bradycardia and sinus tachycardia respectively. Average heart rate was 88. There were 16 supraventricular ectopic events, all of them isolated. There was no ventricular ectopy during the study. There were 16 patient-reported events during the study. All of them appeared to be not rhythm relevant. INTERPRETATION: 1. Basic mechanism sinus rhythm. 2. No high grade atrial or ventricular arrhythmias. 3. No rhythm-relevant symptoms recorded during the study. IJN: [id number] Procedure Note Tania Quiles MD - 07/13/2021 This is an e-Patch monitoring report performed for 48 hours with 253,626beats. Minimum heart rate was 51 with a maximum heart rate of 165 beatsper minute in sinus bradycardia and sinus tachycardia respectively.Average heart rate was 88. There were 16 supraventricular ectopic events,all of them isolated. There was no ventricular ectopy during the study.There were 16 patient-reported events during the study. All of themappeared to be not rhythm relevant. INTERPRETATION: 1. Basic mechanism sinus rhythm. 2. No high grade atrial or ventricular arrhythmias. 3. No rhythm-relevant symptoms recorded during the study. IJN: [id number] Vivien Cross APRN, CNP IMJuliana ECG ORDERAB LES Final Result documented in this encounter Visit Diagnoses Diagnosis Palpitations- Primary Tachycardia Tachycardia, unspecified Gastroesophageal reflux disease, unspecified whether esophagitis present Preventative health care (Adult) Routine general medical examination at a health care facility Palpitations Tachycardia Tachycardia, unspecified documented in this encounter Additional Health Concerns Infection Onset Date Last Indicated Resolved Time COVID - 19 06/10/2021 06/10/2021 06/30/2021 12:1 6 AM DIRECTOR QUALITY SYSTEMS documented as of this encounter Care Teams Architect Naval Relationship Specialty Start Date End Date Vivien Cross APRN, CNP [address] [place] [address] PCP - General Advanced Practice Nurse 06/21/21 documented as of this encounter
--- OUTSIDE RECORDS SUMMARY | 2024-07-07 03:32 | XMS_ITS | Encounter Summary ---
Author Organization [employer] Care Team Providers Care Solder Making Supervisor Name Role Phone Vivien Cross APRN, CNP Primary Care P rovider Encounter Details Date Type Department Care Team (Latest Contact Info) Description 05/27/2023 Travel Social History Tobacco Use Types Packs/Day [...] on filedocumented in this encounter Care Teams Solder Making Supervisor Relationship Specialty Start Date End Date Vivien Cross APRN, CNP [address] [place] [address] PCP - General Advanced Practice Nurse 06/21/21 documented as of this encounter
--- OUTSIDE RECORDS SUMMARY | 2024-07-07 03:32 | XMS_ITS | Encounter Summary ---
Author Organization [employer] [facility] Care Team Providers Care Jtac Name Role Phone Provider, None Primary Care Provider Unavailabl e Encounter Details Date Type Department Care Team (Latest Contact Info) Description 03/24/2021 Travel Social History Tobacco Use Types Packs/Day [...] AM CDT documented as of this encounter Plan of Treatment Not on file documented as of this encounter Visit Diagnoses Not on filedocumented in this encounter Additional Health Concerns Infection Onset Date Last Indicated Resolved Time COVID - 19 03/24/2021 03/24/2021 04/13/2021 12:1 6 AM CDT documented as of this encounter Care Teams Jtac Relationship Specialty Start Date End Date Provider, None [place] PCP - General 04/24/19 06/20/21 documented as of this encounter
--- OUTSIDE RECORDS SUMMARY | 2024-07-07 03:32 | XMS_ITS | Encounter Summary ---
Author Organization [facility] Address [address] [place] [address] Phone Care Team Providers Care Health Center Manager Name Role Phone Vivien Cross APRN, CNP Primary Care P jewel Encounter Details Date Type Department Care Team (Latest Contact Info) Description 02/12/2024 Transcribe Orders [facility] [address] [place] [address] Provider, Not On File [place] Encounter for screening of mother (Primary Dx) Social History Tobacco Use Types [...] documented as of this encounter Results * TYPE & SCREEN (CROSSMATCH CONVERTIBLE) (02/12/2024 1:06 PM CDT) ABO TYPING AB 02/12/2024 2:27 PM CDT [facility] RH Positive 02/12/2024 2:27 PM CDT [facility] ABSC Negative 02/12/2024 2:27 PM CDT [facility] Blood Venipuncture / Unknown 02/12/2024 1:06 PM CDT 02/12/2024 1:40 PM CDT us Not On File Provider BLOOD BANK ORDERABLES Edite d Result - Final [facility] [address] [place] [address] documented in this encounter Visit Diagnoses Diagnosis Encounter for screening of mother- Primary Unspecified screening documented in this encounter Care Teams Health Center Manager Relationship Specialty Start Date End Date Vivien Cross APRN, AIRCRAFT DE ICER INSTALLER [address] [place] [address] PCP - General Advanced Practice Nurse 06/21/21 documented as of this encounter
--- OUTSIDE RECORDS SUMMARY | 2024-07-07 03:32 | XMS_ITS | Encounter Summary ---
Author Organization [facility] Address [address] [place] [address] Phone Care Team Providers Care Regional Marketing Director Name Role Phone Krista Ramirez APRN, CNP Primary Care P rovider Reason for Visit * Reason Onset Date Comments Results 10/11/2023 Labs Encounter Details Date Type Department Care Team (Late st Contact Info) Description 10/11/2023 Telephone [facility] - Primary Care - [place] [address] [place] [address] Krista Ramirez APRN, CNP [address] [place] [address] Results (Labs ) Social History Tobacco Use Types Packs/Day [...] as of this encounter Miscellaneous Notes * Addendum Note - Krista Ramirez APRN, CNP - 10/11/2023 1:48 PM CDT Addended by: KRISTA RAMIREZ on: 10/11/2023 01:48 PM Modules accepted: Orders * Addendum Note - Elva Childers RN - 10/11/2023 1:45 PM CDTAddended by: ELVA CHILDERS on: 10/11/2023 01:45 PM Modules accepted: Orders * Telephone Encounter - Elva Childers RN - 10/11/2023 7:50 AM CDT ----- Message from Krista Ramirez APRN, CNP sent at 10/10/2023 5:03 PM CDT ----- Patient's B12 and vitamin-D both low. She would benefit from weekly vitamin-D supplementation. Weekly vitamin B12 injections x6 weeks and then change to monthly. Her iron is also on the low side of normal. I would recommend starting a that has iron in it daily. documented in this encounter Plan of Treatment Not on file documented as of this encounter Visit Diagnoses Diagnosis Vitamin B12 deficiency- Primary Other B-complex deficiencies Vitamin D deficiency Unspecified vitamin D deficiency documented in this encounter Care Teams Regional Marketing Director Relationship Specialty Start Date End Date Krista Ramirez APRN, CNP [address] [place] [address] PCP - General Advanced Practice Nurse 06/21/21 documented as of this encounter
--- OUTSIDE RECORDS SUMMARY | 2024-07-07 03:32 | XMS_ITS | Encounter Summary ---
Author Organization [facility] Address [address] [place] [address] Phone Care Team Providers Care Take Out Waiter/Waitress Name Role Phone Vivien Cross APRN, CNP Primary Care P chiraglashay Encounter Details Date Type Department Care Team (Late st Contact Info) Description 10/09/2023 10:20 AM CDT Lab [facility] - Primary Care [address] [phone] Lab, [facility] Chronic fatigue Discharge Disposition: Discharged to home or Selfcare [...] encounter Progress Notes * Annalee Salgado - 10/09/2023 10:20 AM CDT Calvin presents for lab draw per order of Scalityted INGE dated 10/09/23. Specimen collected from right antecubital without incident. sah documented in this encounter Plan of Treatment Not on file documented as of this encounter Procedures Procedure Name Priority Date/Time Associated Diagnosis Comments VITAMIN D, 25 HYDROXY TOTAL Routine 10/09/2023 10:13 AM CDT Chronic fatigue IRON,TRANSFERN,CALC.T IBC,%SAT Routine 10/09/2023 10:13 AM CDT Chronic fatigue THYROID SCREEN WITH REFLEX Routine 10/09/2023 10:13 AM CDT Chronic fatigue THYROID SCREEN WITH REFLEX Routine 10/09/2023 10:13 AM CDT Chronic fatigue CBC WITH AUTO DIFFERENTIAL Routine 10/09/2023 10:13 AM CDT Chronic fatigue VITAMIN B12 Routine 10/09/2023 10:13 AM CDT Chronic fatigue FOLIC ACID (FOLATE) Routine 10/09/2023 1 0:13 AM CDT Chronic fatigue FERRITIN Routine 10/09/2023 10:13 AM CDT Chronic fatigue COMPLETE BLOOD COUNT (CBC) WITH DIFF Routine 10/09/2023 10:13 AM CDT Chronic fatigue documented in this encounter Results * (ABNORMAL) CBC WITH AUTO DIFFERENTIAL (10/09/2023 10:13 AM CDT) WBC 6.39 4.00 - 12.00 10(3)/mcL 10/09/2023 12:23 PM CDT [facility] RBC 4.20 3.80 - 5.30 10(6)/mcL 10/09/2023 12:23 PM CDT [facility] HEMOGLOBIN (HGB) 11.7(L) 12.0 - 15.8 g/dL 10/09/2023 12:23 PM CDT [facility] HEMATOCRIT (HCT) 35.6(L) 36.0 - 47.0 % 10/09/2023 12:23 PM CDT [facility] MCV 84.8 82.0 - 96.0 fL 10/09/2023 12:23 PM CDT [facility] MCH 27.9 26.0 - 34.0 pg 10/09/2023 12:23 PM CDT [facility] MCHC 32.9 31.0 - 36.0 g/dL 10/09/2023 12:23 PM CDT [facility] PLATELET COUNT 318 140 - 440 10(3)/mcL 10/09/2023 12:23 PM CDT [facility] RDW 12.3 11.8 - 15.5 % 10/09/2023 12:23 PM CDT [facility] MPV 10.6 9.7 - 12.4 fL 10/09/2023 12:23 PM CDT [facility] NEUTROPHILS 59.8 47.0 - 73.0 % 10/09/2023 12:23 PM CDT [facility] LYMPHOCYTES 29.4 18.0 - 42.0 % 10/09/2023 12:23 PM CDT [facility] MONOCYTES 6.9 4.0 - 12.0 % 10/09/2023 12:23 PM CDT [facility] EOSINOPHILS 3.4 0.0 - 5.0 % 10/09/2023 12:23 PM CDT [facility] BASOPHILS 0.5 0.0 - 1.0 % 10/09/2023 12:23 PM CDT [facility] ABSOLUTE NEUTROPHILS 3.82 1.60 - 7.70 10(3)/mcL 10/09/2023 12:23 PM CDT [facility] ABSOLUTE LYMPHOCYTES 1.88 1.30 - 3.20 10(3)/mcL 10/09/2023 12:23 PM CDT [facility] ABSOLUTE MONOCYTES 0.44 0.20 - 1.00 10(3)/mcL 10/09/2023 12:23 PM CDT [facility] ABSOLUTE EOSINOPHIL 0.22 0.00 - 0.40 10(3)/mcL 10/09/2023 12:23 PM CDT [facility] ABSOLUTE BASOPHILS 0.03 0.00 - 0.10 10(3)/mcL 10/09/2023 12:23 PM CDT [facility] NRBC PER 100 WBC 0 10/09/19 12:23 PM CDT [facility] Blood Venipuncture / Unknown 10/09/2023 10:13 AM CDT 10/09/2023 10:13 AM CDT Vivien Cross APRN, MECHELLE HEMATOLOGY ORDE RABLES Final Result Performing Organization Address City/[facility]/ZIP Co de Phone Number [facility] [address] [place] [address] * THYROID SCREEN WITH REFLEX (10/09/2023 10:13 AM CDT) Pathologist [facility] TSH 0.908 0.300 - 5.000 mIU/L 10/09/2023 1:14 PM CDT [facility] Blood Venipuncture / Unknown 10/09/2023 10:13 AM CDT 10/09/2023 10:13 AM CDT Vivien Cross APRN, CARD CUTTER CHEMISTRY ORDER NANCY Final Result [facility] [place] [address] * FOLIC ACID (FOLATE) (10/09/2023 10:13 AM CDT) FOLATE 9.3 7.0 - 31.4 ng/mL 10/09/2023 1:27 PM CDT [facility] IS THE PATIENT REQUIRED TO BE FASTING? No 10/09/2023 1:27 PM CDT [facility] Blood Venipuncture / Unknown 10/09/2023 10:13 AM CDT 10/09/2023 10:13 AM CDT Vivien Cross APRN, CARD CUTTER CHEMISTRY ORDER NANCY Final Result Performing Organization Address City/[facility]/ZIP Co de Phone Number [facility] [place] [address] * FERRITIN (10/09/2023 10:13 AM CDT) Pathologist [facility] FERRITIN 11 5 - 204 ng/mL 10/09/2023 1:15 PM CDT [facility] Blood Venipuncture / Unknown 10/09/2023 10:13 AM CDT 10/09/2023 10:13 AM CDT Vivien Cross APRN, MECHELLE CHEMISTRY ORDER NANCY Final Result Performing Organization Address City/[facility] Co de Phone Number [facility] [address] [place] [address] * IRON,TRANSFERN,CALC.TIBC,%SAT (10/09/2023 10:13 AM CDT) IRON 66 25 - 156 mcg/dL 10/09/2023 12:53 PM CDT [facility] TRANSFERRIN 296 180 - 382 mg/dL 10/09/2023 12:53 PM CDT [facility] TIBC, CALCULATED 370 265 - 497 mcg/dL 10/09/2023 12:53 PM CDT [facility] % SATURATION * 18 15 - 62 % 10/09/2023 12:53 PM CDT [facility] Blood Venipuncture / Unknown 10/09/2023 10:13 AM CDT 10/09/2023 10:13 AM CDT Vivien Cross APRN, CNP CHEMISTRY ORDER NANCY Final Result [facility] [address] [place] [address] * VITAMIN D, 25 HYDROXY TOTAL (10/09/2023 10:13 AM CDT) VITAMIN D, 25 HYDROX 19 ng/mL 10/09/2023 1:27 PM CDT [facility] Blood Venipuncture / Unknown 10/09/2023 10:13 AM CDT 10/09/2023 10:13 AM CDT Narrative [facility] - 10/09/2023 1:27 PM CDT Published reference ranges for Vitamin D vary depending on time and place and method of testing, and on patient's age, sex, ethnicity and levels of other measured analytes such as parathormone, calcium and phosphorus. ??The result should be evaluated in conjunction with clinical findings and suspicions. [place] of [employer] and Endocrine Clinical Practice Guidelines: Status Vitamin D levels (ng/mL) Deficient <=20 At risk of inadequacy 21-29 Sufficient 30-100 Centers of Disease Control and Prevention Guidelines: Status Vitamin D levels (ng/mL) Deficient <13 At risk of inadequacy 13-19 Sufficient 20-50 Possibly harmful >50 References: [place] of Medicine, 2010 Dietary reference intakes for calcium and vitamin D. [place]: ??The National Academies Press. Yeimi M, Aftab N, Celio PALACIO, et al., Evaluation, treatment, and prevention of Vitamin D deficiency: an Endocrinology Clinical Practice Guideline. JCEM 2011 96: 7 1534-2019. Netta A, [place] C, Grace Gonzalez, et al., Vitamin D Status: ??[place], 2000- 1005, [facility] data brief, no. 59, MD [place]: ??National Center for Health Statistics. 2011. Vivien Cross APRN, CNP CHEMISTRY ORDER NANCY Final Result Performing Organization Address City/[facility]/ZIP Co de Phone Number [facility] [place] [address] * VITAMIN B12 (10/09/2023 10:13 AM CDT) VITAMIN B12 249 213 - 816 pg/mL 10/09/2023 1:27 PM CDT [facility] Blood Venipuncture / Unknown 10/09/2023 10:13 AM CDT 10/09/2023 10:13 AM CDT us Vivien Cross APRN, CNP CHEMISTRY ORDER NANCY Final Result Performing Organization Address [facility] Co de Phone Number [facility] [place] [address] documented in this encounter Visit Diagnoses Diagnosis Chronic fatigue Other malaise and fatigue documented in this encounter Care Teams Take Out Waiter/Waitress Relationship Specialty Start Date End Date Vivien Cross APRN, CNP [address] [place] [address] PCP - General Advanced Practice Nurse 06/21/21 documented as of this encounter
--- OUTSIDE RECORDS SUMMARY | 2024-07-07 03:32 | XMS_ITS | Encounter Summary ---
Author Organization [facility] Care Team Providers Care Mid Level Java Developer Name Role Phone Vivien Cross APRN, CNP Primary Care P rovider Encounter Details Date Type Department Care Team (Latest Contact Info) Description 07/07/2021 Travel Social History Tobacco Use Types Packs/Day [...] COVID-19? No / Unsure 07/07/2021 1:05 PM SENIOR INTEGRATION DEVELOPER documented as of this encounter Plan of Treatment Not on file documented as of this encounter Visit Diagnoses Not on filedocumented in this encounter Care Teams Mid Level Java Developer Relationship Specialty Start Date End Date Vivien Cross APRN CRANE HOOKER [address] [place] [address] PCP - General Advanced Practice Nurse 06/21/21 documented as of this encounter
--- OUTSIDE RECORDS SUMMARY | 2024-07-07 03:32 | XMS_ITS | Encounter Summary ---
Author Organization [facility] Care Team Providers Care Piece Cutter Name Role Phone Vivien Cross APRN, CNP Primary Care P rovider Encounter Details Date Type Department Care Team (Latest Contact Info) Description 10/09/2023 Travel Social History Tobacco Use Types Packs/Day [...] on filedocumented in this encounter Care Teams Piece Cutter Relationship Specialty Start Date End Date Vivien Cross APRN, CNP [address] [place] [address] PCP - General Advanced Practice Nurse 06/21/21 documented as of this encounter
--- OUTSIDE RECORDS SUMMARY | 2024-07-07 03:32 | XMS_ITS | Encounter Summary ---
Author Organization [facility] Address [address] [place] [address] Phone Care Team Providers Care Actuarial Science Teacher Name Role Phone Provider, None Primary Care Provider Unavailabl e Reason for Visit * Reason Comments Diarrhea Cough Headache Encounter Details Date Type Department Care Team (Latest Contact Info) Description 06/10/2021 12:45 PM GLASS CUTTING MACHINE OPERATOR Clinical Support [facility] [place] [address] [place] [address] Nurse, [facility] [place] Cough (Primary Dx); Diarrhea, unspecified type; Nonintractable headache, unspecified chronicity pattern, unspecified headache type Discharge Disposition: Discharged to home or Selfcare [...] COVID-19? No / Unsure 06/10/2021 12:44 PM GLASS CUTTING MACHINE OPERATOR documented as of this encounter Progress Notes * Gideon Pack RMA - 06/10/2021 12:45 PM CST Patient presents to the medical center for COVID 19 swab. Bilateral nares swabbed with no difficulty and patient tolerated well. S CUTTING MACHINE OPERATOR documented in this encounter Plan of Treatment Not on file documented as of this encounter Procedures Procedure Name Priority Date/Time Associated Diagnosis Comments POCT SARS ANTIGEN SHERRY Routine 06/10/2021 1:02 PM GLASS CUTTING MACHINE OPERATOR Cough Diarrhea, unspecified type Nonintractable headache, unspecified chronicity pattern, unspecified headache type documented in this encounter Results * POCT SARS ANTIGEN SHERRY (06/10/2021 1:02 PM GLASS CUTTING MACHINE OPERATOR) POC SARS ANTIGEN SHERRY Negative Negative POC SARS ANTIGEN SHERRY CONTROL Advocacy Director Pass Swab NASAL STRUCTURE / Unknown 06/10/2021 1:02 PM GLASS CUTTING MACHINE OPERATOR Chelsea Soriano CAR FERRY CAPTAIN, MOVEMENT ASSEMBLY FINAL INSPECTOR POINT OF CARE LO TING (MANUAL) Final Result documented in this encounter Visit Diagnoses Diagnosis Cough- Primary Diarrhea, unspecified type Nonintractable headache, unspecified chronicity pattern, unspecified headache type documented in this encounter Care Teams Actuarial Science Teacher Relationship Specialty Start Date End Date Provider, None [place] PCP - General 04/24/19 06/20/21 documented as of this encounter
--- OUTSIDE RECORDS SUMMARY | 2024-07-07 03:32 | XMS_ITS | Encounter Summary ---
Author Organization [facility] Address [address] [place] [address] Phone Care Team Providers Care Trust Clerk Name Role Phone Vivien Cross APRN, MECHELLE Primary Care P rovider Encounter Details Date Type Department Care Team (Late st Contact Info) Description 09/14/2022 Patient Outreach [facility] - [facility] - [place] [address] [place] [id number] Vivien Cross APRN, MID LEVEL PROJECT MANAGER [address] [place] [address] Social History Tobacco Use Types [...] on filedocumented in this encounter Care Teams Trust Clerk Relationship Specialty Start Date End Date Vivien Cross APRN, MID LEVEL PROJECT MANAGER [address] [place] [address] PCP - General Advanced Practice Nurse 06/21/21 documented as of this encounter
--- OUTSIDE RECORDS SUMMARY | 2024-07-07 03:32 | XMS_ITS | Encounter Summary ---
Author Organization [facility] Address [address] [place] [address] Phone Care Team Providers Care Railroad Car Cleaning Supervisor Name Role Phone Vivien Cross APRN, CNP Primary Care P rovider Reason for Referral * Radiology Services (Routine) - Closed Specialty Diagnoses / Procedures Referred By Joe diggs Referred To Contact Radiology Diagnoses Palpitations Tachycardia Procedures HOLTER MONITOR RECORDING ONLY-48 HOUR HOLTER MONITOR RECORDING & ANALYSIS-48 HOUR Vivien Cross APRN, CNP [address] [place] [address] Phone: tel: fax: Referral ID Status Reason Start Date Expiration Date Visits Re quested Visits Authorized [id number] Closed 06/21/2021 1 1 CING SALON ATTENDANT Reason for Visit * Radiology Services (Routine) - Closed Specialty Diagnoses / Procedures Referred By Joe diggs Referred To Contact Radiology Diagnoses Palpitations Tachycardia Procedures HOLTER MONITOR RECORDING ONLY-48 HOUR HOLTER MONITOR RECORDING & ANALYSIS-48 HOUR Vivien Cross APRN, CNP [address] [place] [address] Phone: tel: fax: Referral ID Status Reason Start Date Expiration Date Visits Re quested Visits Authorized [id number] Closed 06/21/2021 1 1 Encounter Details Date Type Department Care Team (Latest Contact Info) Description 07/07/2021 1:14 PM REDUCING SALON ATTENDANT - 07/07/2021 11:59 PM REDUCING SALON ATTENDANT Hospital Encounter [facility] [address] [place] [address] Vivien Cross APRN, WEATHER REPORTER [address] [place] [address] Discharge Disposition: Discharged to home or Selfcare [...] COVID-19? No / Unsure 07/07/2021 1:05 PM REDUCING SALON ATTENDANT documented as of this encounter Medications at Time of Discharge famotidine (PEPCID) 20 MG TabletIndications: Gastroesophageal reflux disease, unspecified whether esophagitis present Take 1 Tablet by mouth every evening. 90 Tablet 3 06/21/2021 10/11/2023 Sprintec 28 0.25-35 MG-MCG Tablet 04/28/2021 10/11/2023 documented as of this encounter Plan of Treatment Not on file documented as of this encounter Procedures Procedure Name Priority Date/Time Associated Diagnosis Comments HOLTER MONITOR RECORDING ONLY-48 HOUR Routine 07/07/2021 1:24 PM REDUCING SALON ATTENDANT Palpitations Tachycardia documented in this encounter Results * HOLTER MONITOR RECORDING ONLY-48 HOUR (07/07/2021 1:24 PM REDUCING SALON ATTENDANT) Anatomical Region Laterality Modality CARDIO N/A Electrocardiogra phy Narrative 07/13/2021 10:30 AM REDUCING SALON ATTENDANT This is an e-Patch monitoring report performed [...] rhythm-relevant symptoms recorded during the study. IJN: [id number] Procedure Note Tania Quiles MD - 07/13/2021 [...] rhythm-relevant symptoms recorded during the study. IJN: [id number]/[id number] Vivien Cross APRN, CNP IMG ECG ORDERAB LES Final Result documented in this encounter Visit Diagnoses Diagnosis Palpitations Tachycardia Tachycardia, unspecified documented in this encounter Care Teams Railroad Car Cleaning Supervisor Relationship Specialty Start Date End Date Vivien Cross APRN, CNP [address] [place] [address] PCP - General Advanced Practice Nurse 06/21/21 documented as of this encounter
--- OUTSIDE RECORDS SUMMARY | 2024-07-07 03:32 | XMS_ITS | Encounter Summary ---
Author Organization [facility] Address [address] [place] [address] Phone Care Team Providers Care Music Therapy Teacher Name Role Phone Vivien Cross APRN, CNP Primary Care P rovider Reason for Visit * Reason Onset Date Comments Need Order 12/12/2023 [facility] labs Encounter Details Date Type Department Care Team (Late st Contact Info) Description 12/12/2023 Telephone [facility] - [facility] - [place] [address] [place] [address] Vivien Cross APRN, CNP [address] [place] [address] Need Order ([facility] labs) Social History Tobacco Use Types Packs/Day Years [...] Telephone Encounter - Alayna Wen RN - 12/12/2023 9:50 AM CDT Patient needing lab work for AGING ROOM HAND. Per verbal order of ALEXANDREA Munoz, okgurmeet to draw atoffice. Orders placed. To be faxed to [phone] after completed. documented in this encounter Plan of Treatment Not on file documented as of this encounter Results * THYROXINE (T4) FREE (12/25/2023 11:41 AM CDT) T4 FREE 0.9 0.7 - 1.9 ng/dL 12/25/2023 12:59 PM CDT [facility] Blood Venipuncture / Unknown 12/25/2023 11:41 AM CDT 12/25/2023 12:04 PM CDT Vivien Cross APRN, WAREHOUSE SUPERVISOR 3RD SHIFT CHEMISTRY ORDER NANCY Final Result Performing Organization Address City/[facility]/ZIP Co de Phone Number [facility] [address] [place] [address] * FERRITIN (12/25/2023 11:41 AM CDT) FERRITIN 21 5 - 204 ng/mL 12/25/2023 12:59 PM CDT [facility] Blood Venipuncture / Unknown 12/25/2023 11:41 AM CDT 12/25/2023 12:04 PM CDT us Vivien Cross APRN, WAREHOUSE SUPERVISOR 3RD SHIFT CHEMISTRY ORDER NANCY Final Result [facility] [place] [address] * ABO & RH TYPING (12/25/2023 11:41 AM CDT) Pathologist [facility] ABO TYPING AB 12/25/2023 1:05 PM CDT [facility] RH Positive 12/25/2023 1:05 PM CDT [facility] Blood Venipuncture / Unknown 12/25/2023 11:41 AM CDT 12/25/2023 12:05 PM CDT Vivien Cross APRN, CNP BLOOD BANK ORDE RABLES Final Result [facility] [place] [address] * HEPATITIS C ANTIBODY (12/25/2023 11:41 AM CDT) [facility] hepatitis C antibody 0.07 <1 S/CO 12/25/2023 9:19 PM CDT [facility] Comment: Signal/Cutoff ratio ??< 0.79 is Nondetected Signal/Cutoff ratio 0.80-0.99 is Grayzone Signal/Cutoff ratio > 0.99 is Detected Supplemental assays are recommended if signal/cutoff ratio is >/=1.00. ??Signal/cutoff ratio result >/= 5.00 is 97% predictive of positivity for recombinant immunoblot assay (RIBA) and will be reported to the [place] Department of Public Health as required. Blood Venipuncture / Unknown 12/25/2023 11:41 AM CDT 12/25/2023 12:04 PM CDT Vivien Cross APRN, CNP CHEMISTRY ORDER NANCY Final Result Performing Organization Address City/[facility]/ZIP Co de Phone Number [facility] [address] [place] [address], [place] * HEPATITIS B SURFACE ANTIGEN (HBSAG) (12/25/2023 11:41 AM CDT) Pathologist [facility] HEPATITIS B SURFACE ANTIGEN NON DETECTED NON DETECTED 12/25/2023 1:01 PM CDT [facility] Comment:A nonreactive test r esult does not exclude the possibility of exposure to or infection with Hepatitis B virus. A nonreactive test result in individuals with prior exposure to hepatitis B may be due to antigen levels below the detection limit of this assay or lack of antigen reactivity to the antibodies in this assay. Blood Venipuncture / Unknown 12/25/2023 11:41 AM CDT 12/25/2023 12:04 PM CDT Vivien Cross APRN, CNP CHEMISTRY ORDER NANCY Final Result [facility] [address] [place] [address] * VITAMIN D, 25 HYDROXY TOTAL (12/25/2023 11:41 AM CDT) [facility] VITAMIN D, 25 HYDROX 22 ng/mL 12/25/2023 12:58 PM CDT [facility] Blood Venipuncture / Unknown 12/25/2023 11:41 AM CDT 12/25/2023 12:04 PM CDT Narrative [facility] - 12/25/2023 12:58 PM CDT Published reference ranges for Vitamin D vary depending on time and place and method of testing, and on patient's age, sex, ethnicity and levels of other measured analytes such as parathormone, calcium and phosphorus. ??The result should be evaluated in conjunction with clinical findings and suspicions. [place] of [employer] and Endocrine Clinical Practice Guidelines: Status Vitamin D levels (ng/mL) Deficient <=20 At risk of inadequacy 21-29 Sufficient 30-100 Centers of Disease Control and Prevention Guidelines: Status Vitamin D levels (ng/mL) Deficient <13 At risk of inadequacy 13-19 Sufficient 20-50 Possibly harmful >50 References: [place] [employer], 2010 Dietary reference intakes for calcium and vitamin D. [place]: ??The National Academies Press. Yeimi M, Aftab Victor, Celio PALACIO, et al., Evaluation, treatment, and prevention of Vitamin D deficiency: an Endocrinology Clinical Practice Guideline. JCEM 2011 96: 7 8672-1656. Netta A, [place] C, Grace Gonzalez, et al., Vitamin D Status: ??[place], 1005, [facility] data brief, no. 59, MD [place]: ??Formerly [facility] for [facility] Statistics. 2010. Vivien Cross APRN, MECHELLE CHEMISTRY ORDER NANCY Final Result [facility] [address] [place] [address] * HEMOGLOBIN A1C W/ ESTIMATED GLUCOSE (12/25/2023 11:41 AM CDT) HGB-A1C 5.3 4.0 - 6.0 % 12/25/2023 12:27 PM CDT [facility] Est Average Glucose 105.4 mg/dL 12/25/2023 12:27 PM CDT [facility] Blood Venipuncture / Unknown 12/25/2023 11:41 AM CDT 12/25/2023 12:04 PM CDT Narrative [facility] - 12/25/2023 12:27 PM CDT HEMOGLOBIN A1C: DIABETIC PATIENTS: WELL-CONTROLLED: ?? 6.2 - 7.0 INTERMEDIATE WELL-CONTROLLED: ??7.0 - 9.0 POORLY-CONTROLLED: ??>9.0 us Vivien Cross APRN, WAREHOUSE SUPERVISOR 3RD SHIFT CHEMISTRY ORDER NANCY Final Result Performing Organization Address City/[facility]/ZIP Co de Phone Number [facility] [place] [address] documented in this encounter Visit Diagnoses Diagnosis Screening for thyroid disorder- Primary Encounter for screening of mother Unspecified screening documented in this encounter Care Teams Music Therapy Teacher Relationship Specialty Start Date End Date Vivien Cross APRN, MECHELLE [address] [place] [address] PCP - General Advanced Practice Nurse 06/21/21 documented as of this encounter
--- OUTSIDE RECORDS SUMMARY | 2024-07-07 03:32 | XMS_ITS | Encounter Summary ---
Author Organization [employer] Care Team Providers Care Electronics Supervisor Name Role Phone Vivien Cross APRN, CNP Primary Care P rovider Encounter Details Date Type Department Care Team (Latest Contact Info) Description 04/27/2024 Travel Social History Tobacco Use Types Packs/Day [...] on filedocumented in this encounter Care Teams Electronics Supervisor Relationship Specialty Start Date End Date Vivien Cross APRN, CNP [address] [place] [address] PCP - General Advanced Practice Nurse 06/21/21 documented as of this encounter
== END 2024-07-02 15:50 | disposition home or self-care (01) | DRG 807 ==
LOC: ANHLDR 05:05 → ANHOB2 17:22
PROVIDERS: Admitting Provider Obstetrics & Gynecology Gynecology; Visit Provider Obstetrics & Gynecology Gynecology
DX: O77.0 Labor and delivery complicated by meconium in amniotic fluid (principal); Z37.0 Single live birth; Z3A.39 39 weeks gestation of pregnancy; O69.81X0 Labor and delivery complicated by cord around neck, without compression, not applicable or unspecified; O70.1 Second degree perineal laceration during delivery
CPT/HCPCS: 36415; 85014; 85018; 85025; 86592; 86703; 86850; 86900; 86901; A9270; G0432; J2590; J2795; J3010; J7120